=== PATIENT | male | born 1970 | race Hispanic/Latino ===

== ENCOUNTER → 2018-06-28 | Outpatient (CLI) | payer BC ==
[2018-06-28 14:00] VITALS: BP 176/101
== END | disposition home or self-care (01) ==
LOC: WHH 10:25
PROVIDERS: ATTEND Podiatrist Foot & Ankle Surgery
DX: E11.621 Type 2 diabetes mellitus with foot ulcer (principal); L97.522 Non-pressure chronic ulcer of other part of left foot with fat layer exposed; E11.610 Type 2 diabetes mellitus with diabetic neuropathic arthropathy; E11.42 Type 2 diabetes mellitus with diabetic polyneuropathy; Z89.422 Acquired absence of other left toe(s); Z89.412 Acquired absence of left great toe
CPT/HCPCS: 11042; 11045; 99205; A4450; A4649

== ENCOUNTER → 2018-07-12 | Outpatient (CLI) | payer BC ==
[2018-07-12 14:30] VITALS: BP 180/73
== END | disposition home or self-care (01) ==
LOC: WHH 09:00
PROVIDERS: ATTEND Podiatrist Foot & Ankle Surgery
DX: E11.621 Type 2 diabetes mellitus with foot ulcer (principal); L97.522 Non-pressure chronic ulcer of other part of left foot with fat layer exposed; L84 Corns and callosities; E11.610 Type 2 diabetes mellitus with diabetic neuropathic arthropathy; E11.42 Type 2 diabetes mellitus with diabetic polyneuropathy; Z89.412 Acquired absence of left great toe; Z89.422 Acquired absence of other left toe(s)
CPT/HCPCS: 11042; A6021

== ENCOUNTER → 2018-07-19 | Outpatient (CLI) | payer BC ==
[2018-07-19 13:04] VITALS: BP 175/85
== END | disposition home or self-care (01) ==
LOC: WHH 09:00
PROVIDERS: ATTEND Podiatrist Foot & Ankle Surgery
DX: E11.621 Type 2 diabetes mellitus with foot ulcer (principal); L97.522 Non-pressure chronic ulcer of other part of left foot with fat layer exposed; E11.610 Type 2 diabetes mellitus with diabetic neuropathic arthropathy; E11.42 Type 2 diabetes mellitus with diabetic polyneuropathy; Z89.422 Acquired absence of other left toe(s); Z89.412 Acquired absence of left great toe
CPT/HCPCS: 11042; A6021

== ENCOUNTER → 2018-08-09 | Outpatient (CLI) | payer BC ==
[2018-08-09 15:41] VITALS: BP 172/89
== END | disposition home or self-care (01) ==
LOC: WHH 09:00
PROVIDERS: ATTEND Podiatrist Foot & Ankle Surgery
DX: E11.621 Type 2 diabetes mellitus with foot ulcer (principal); L97.522 Non-pressure chronic ulcer of other part of left foot with fat layer exposed; E11.610 Type 2 diabetes mellitus with diabetic neuropathic arthropathy; E11.42 Type 2 diabetes mellitus with diabetic polyneuropathy; L84 Corns and callosities; Z89.422 Acquired absence of other left toe(s); Z89.412 Acquired absence of left great toe
CPT/HCPCS: 11042; A4450; A6021

== ENCOUNTER → 2018-08-23 | Outpatient (CLI) | payer BC ==
[2018-08-23 13:05] VITALS: BP 200/122
== END | disposition home or self-care (01) ==
LOC: WHH 09:00
PROVIDERS: ATTEND Podiatrist Foot & Ankle Surgery
DX: E11.621 Type 2 diabetes mellitus with foot ulcer (principal); L97.521 Non-pressure chronic ulcer of other part of left foot limited to breakdown of skin; E11.40 Type 2 diabetes mellitus with diabetic neuropathy, unspecified; E11.610 Type 2 diabetes mellitus with diabetic neuropathic arthropathy; Z89.412 Acquired absence of left great toe
CPT/HCPCS: 99214; A6021

== ENCOUNTER → 2018-09-06 | Outpatient (CLI) | payer BC ==
[2018-09-06 11:36] VITALS: BP 186/101
== END | disposition home or self-care (01) ==
LOC: WHH 09:00
PROVIDERS: ATTEND Podiatrist Foot & Ankle Surgery
DX: E11.621 Type 2 diabetes mellitus with foot ulcer (principal); L97.524 Non-pressure chronic ulcer of other part of left foot with necrosis of bone; E11.610 Type 2 diabetes mellitus with diabetic neuropathic arthropathy; E11.42 Type 2 diabetes mellitus with diabetic polyneuropathy; Z89.412 Acquired absence of left great toe; Z89.422 Acquired absence of other left toe(s)
CPT/HCPCS: 11042; A6021

== ENCOUNTER → 2018-09-20 | Outpatient (CLI) | payer BC ==
[2018-09-20 10:17] VITALS: BP 184/79
== END | disposition home or self-care (01) ==
LOC: WHH 09:20
PROVIDERS: ATTEND Podiatrist Foot & Ankle Surgery
DX: E11.621 Type 2 diabetes mellitus with foot ulcer (principal); L97.522 Non-pressure chronic ulcer of other part of left foot with fat layer exposed; E11.610 Type 2 diabetes mellitus with diabetic neuropathic arthropathy; E11.42 Type 2 diabetes mellitus with diabetic polyneuropathy; Z89.412 Acquired absence of left great toe; Z89.422 Acquired absence of other left toe(s)
CPT/HCPCS: 11042; A6021

== ENCOUNTER → 2018-09-20 | Outpatient (CLI) | payer BC | END | disposition home or self-care (01) | LOC: RAH 10:11 | PROVIDERS: ATTEND Podiatrist Foot & Ankle Surgery | DX: E11.621 Type 2 diabetes mellitus with foot ulcer (principal); L97.529 Non-pressure chronic ulcer of other part of left foot with unspecified severity | CPT/HCPCS: 73630 ==

== ENCOUNTER → 2018-10-04 | Outpatient (CLI) | payer BC ==
[2018-10-04 14:18] VITALS: BP 177/100
== END | disposition home or self-care (01) ==
LOC: WHH 09:45
PROVIDERS: ATTEND Podiatrist Foot & Ankle Surgery
DX: E11.621 Type 2 diabetes mellitus with foot ulcer (principal); L97.526 Non-pressure chronic ulcer of other part of left foot with bone involvement without evidence of necrosis; E11.610 Type 2 diabetes mellitus with diabetic neuropathic arthropathy; E11.42 Type 2 diabetes mellitus with diabetic polyneuropathy; Z89.412 Acquired absence of left great toe; Z89.422 Acquired absence of other left toe(s)
CPT/HCPCS: 11042; A6021

== ENCOUNTER 2018-10-11 05:48 | Day surgery (SDC) | payer BC ==
[2018-10-09 17:40] VITALS: BP 162/81
[2018-10-09 17:45] LABS: EOSINOPHILS % (AUTO) 1.9 % (0.0-8.0); HEMATOCRIT 35.3 % (42-54); MEAN CORPUSCULAR HEMOGLOBIN 29.3 pg (27.0-33.0); MEAN CORPUSCULAR HGB CONC 33.3 g/dL (32.0-36.0); MEAN CORPUSCULAR VOLUME 88.2 fL (79-99); MONOCYTES % (AUTO) 8.6 % (3.0-13.0); NEUTROPHILS % (AUTO) 65.5 % (40.0-77.0); PLATELET COUNT (AUTO) 273 K/uL (130-400); RED BLOOD CELL COUNT(AUTO) 4.01 MIL/uL (4.50-6.20)
[2018-10-09 19:30] LABS: CREATININE 2.6 mg/dL (0.5-1.5); POTASSIUM 4.9 mmol/L (3.5-5.1)
[2018-10-11] VITALS (14 sets, daily range): BP systolic 140–159; BP diastolic 70–92
[~2018-10-11] VITALS: Ht 171.4 cm; Wt 94.5 kg
[~2018-10-11 05:48] MED LIST: CARVEDILOL PO; FOLI1TAB85 PO; METF-444 PO; folic acid PO; furosemide PO; humulin 70/30 SQ
[2018-10-11] MEDS ORDERED: BUPIVACAINE/PF 0.5% 30ML VIAL ONE (05:49)
[2018-10-11] MEDS ORDERED: LIDOCAINE HCL 1% 20 ML VIAL ONE (05:49)
[2018-10-11] MEDS ORDERED: SODIUM CHLORIDE 0.9% 1000ML 1,000 ML IV ONE (05:53)
[2018-10-11] MEDS ORDERED: LIDOCAINE PF 2% 5ML ABBOJECT ONE (06:13)
[2018-10-11] MEDS ORDERED: PROPOFOL 10 MG/ML 20ML VIAL IV ONE (06:13)
[2018-10-11] MEDS ORDERED: ONDANSETRON HCL 4 MG/2 ML VIAL ONE (06:13)
[2018-10-11] MEDS ORDERED: MIDAZOLAM HCL 1 MG/ML 2ML VIAL ONE ×2 (06:13→07:50)
[2018-10-11] MEDS ORDERED: DEXAMETHASONE SOD PHOSPHATE 10MG/ML 1ML VIAL ONE (06:13)
[2018-10-11] MEDS ORDERED: FENTANYL CITRATE PF 50 MCG/1 ML 2ML VIAL ONE (06:14)
[2018-10-11] MEDS ORDERED: FOLI1TAB15 PO (06:49)
[2018-10-11] MEDS ORDERED: FURO40TA5 PO (06:52)
[2018-10-11] MEDS ORDERED: PRAV10TA39 PO (06:53)
== END 2018-10-11 10:00 ==
LOC: DAH 05:48
PROVIDERS: ATTEND Podiatrist Foot & Ankle Surgery
DX: L97.428 Non-pressure chronic ulcer of left heel and midfoot with other specified severity (principal); E11.22 Type 2 diabetes mellitus with diabetic chronic kidney disease; I50.9 Heart failure, unspecified; E61.2 Magnesium deficiency; I25.5 Ischemic cardiomyopathy; I25.10 Atherosclerotic heart disease of native coronary artery without angina pectoris; Z79.899 Other long term (current) drug therapy; Z68.32 Body mass index [BMI] 32.0-32.9, adult; E66.9 Obesity, unspecified; I13.2 Hypertensive heart and chronic kidney disease with heart failure and with stage 5 chronic kidney disease, or end stage renal disease; N18.6 End stage renal disease
CPT/HCPCS: 11044; 36415; 80048; 82948 ×2; 85025; 93005; A4649; A6446; J1100; J2001; J2250 ×2; J2405; J2704; J3010; J3490; J7030

== ENCOUNTER → 2018-10-13 | Outpatient (CLI) | payer BC ==
[~2018-10-13] MED LIST changes: +FOLI1TAB15 PO; +FURO40TA5 PO; +PRAV10TA39 PO; -folic acid PO; -furosemide PO
[2018-10-13 10:31] VITALS: BP 169/92
--- NOTE | 2018-10-13 10:33 | NUR ---
Patient presents to clinic status post surgical debridement. Incision to left foot mid plantar area is well approximated with sutures intact; no bleeding or drainage noted. Wound care performed as ordered. Patient tolerated wound care without complaint. Patient offloading left foot with boot and knee scooter. Addendum: 10/13/18 at 1037 by ARIAN ALLRED RN/SABRINA Amended: Links added.
== END | disposition home or self-care (01) ==
LOC: WHH 10:00
PROVIDERS: ATTEND Podiatrist Foot & Ankle Surgery
DX: T81.89XS Other complications of procedures, not elsewhere classified, sequela (principal); E11.621 Type 2 diabetes mellitus with foot ulcer; L97.521 Non-pressure chronic ulcer of other part of left foot limited to breakdown of skin; E11.610 Type 2 diabetes mellitus with diabetic neuropathic arthropathy; E11.42 Type 2 diabetes mellitus with diabetic polyneuropathy; Z89.412 Acquired absence of left great toe; Z89.422 Acquired absence of other left toe(s); Y83.8 Other surgical procedures as the cause of abnormal reaction of the patient, or of later complication, without mention of misadventure at the time of the procedure
CPT/HCPCS: 99211

== ENCOUNTER → 2018-10-18 | Outpatient (CLI) | payer BC ==
[2018-10-18 15:46] VITALS: BP 185/103
== END | disposition home or self-care (01) ==
LOC: WHH 10:00
PROVIDERS: ATTEND Podiatrist Foot & Ankle Surgery
DX: T81.89XD Other complications of procedures, not elsewhere classified, subsequent encounter (principal); E11.621 Type 2 diabetes mellitus with foot ulcer; L97.521 Non-pressure chronic ulcer of other part of left foot limited to breakdown of skin; E11.22 Type 2 diabetes mellitus with diabetic chronic kidney disease; I13.2 Hypertensive heart and chronic kidney disease with heart failure and with stage 5 chronic kidney disease, or end stage renal disease; N18.6 End stage renal disease; I50.9 Heart failure, unspecified; E11.42 Type 2 diabetes mellitus with diabetic polyneuropathy; E11.610 Type 2 diabetes mellitus with diabetic neuropathic arthropathy; I25.10 Atherosclerotic heart disease of native coronary artery without angina pectoris; E66.9 Obesity, unspecified; Z79.899 Other long term (current) drug therapy; Z89.422 Acquired absence of other left toe(s); Z89.412 Acquired absence of left great toe; Y83.8 Other surgical procedures as the cause of abnormal reaction of the patient, or of later complication, without mention of misadventure at the time of the procedure
CPT/HCPCS: 99214

== ENCOUNTER → 2018-10-25 | Outpatient (CLI) | payer BC ==
[2018-10-25 13:48] VITALS: BP 162/95
== END | disposition home or self-care (01) ==
LOC: WHH 09:30
PROVIDERS: ATTEND Podiatrist Foot & Ankle Surgery
DX: T81.89XS Other complications of procedures, not elsewhere classified, sequela (principal); E11.621 Type 2 diabetes mellitus with foot ulcer; L97.522 Non-pressure chronic ulcer of other part of left foot with fat layer exposed; E11.22 Type 2 diabetes mellitus with diabetic chronic kidney disease; I13.2 Hypertensive heart and chronic kidney disease with heart failure and with stage 5 chronic kidney disease, or end stage renal disease; N18.6 End stage renal disease; I50.9 Heart failure, unspecified; E11.610 Type 2 diabetes mellitus with diabetic neuropathic arthropathy; E11.42 Type 2 diabetes mellitus with diabetic polyneuropathy; I25.10 Atherosclerotic heart disease of native coronary artery without angina pectoris; E66.9 Obesity, unspecified; Z89.412 Acquired absence of left great toe; Z89.422 Acquired absence of other left toe(s); Z79.899 Other long term (current) drug therapy; Y83.8 Other surgical procedures as the cause of abnormal reaction of the patient, or of later complication, without mention of misadventure at the time of the procedure
CPT/HCPCS: 11042; A6021

== ENCOUNTER → 2018-11-01 | Outpatient (CLI) | payer BC ==
[2018-11-01 13:42] VITALS: BP 179/88
== END | disposition home or self-care (01) ==
LOC: WHH 10:00
PROVIDERS: ATTEND Podiatrist Foot & Ankle Surgery
DX: E11.621 Type 2 diabetes mellitus with foot ulcer (principal); L97.522 Non-pressure chronic ulcer of other part of left foot with fat layer exposed; E11.610 Type 2 diabetes mellitus with diabetic neuropathic arthropathy; E11.22 Type 2 diabetes mellitus with diabetic chronic kidney disease; I13.2 Hypertensive heart and chronic kidney disease with heart failure and with stage 5 chronic kidney disease, or end stage renal disease; N18.6 End stage renal disease; I50.9 Heart failure, unspecified; E11.42 Type 2 diabetes mellitus with diabetic polyneuropathy; I25.10 Atherosclerotic heart disease of native coronary artery without angina pectoris; E66.9 Obesity, unspecified; Z89.412 Acquired absence of left great toe; Z89.422 Acquired absence of other left toe(s); Z79.899 Other long term (current) drug therapy
CPT/HCPCS: 11042; A6022

== ENCOUNTER → 2018-11-15 | Outpatient (CLI) | payer BC ==
[2018-11-15 13:57] VITALS: BP 160/87
== END | disposition home or self-care (01) ==
LOC: WHH 10:30
PROVIDERS: ATTEND Podiatrist Foot & Ankle Surgery
DX: E11.621 Type 2 diabetes mellitus with foot ulcer (principal); L97.521 Non-pressure chronic ulcer of other part of left foot limited to breakdown of skin; E11.610 Type 2 diabetes mellitus with diabetic neuropathic arthropathy; E11.22 Type 2 diabetes mellitus with diabetic chronic kidney disease; N18.6 End stage renal disease; I13.2 Hypertensive heart and chronic kidney disease with heart failure and with stage 5 chronic kidney disease, or end stage renal disease; I50.9 Heart failure, unspecified; E11.42 Type 2 diabetes mellitus with diabetic polyneuropathy; I25.10 Atherosclerotic heart disease of native coronary artery without angina pectoris; I25.5 Ischemic cardiomyopathy; E66.9 Obesity, unspecified; E61.2 Magnesium deficiency; Z89.412 Acquired absence of left great toe; Z89.422 Acquired absence of other left toe(s); Z99.2 Dependence on renal dialysis; Z79.899 Other long term (current) drug therapy
CPT/HCPCS: 15275; A6196; A6207; Q4133

== ENCOUNTER → 2018-11-22 | Outpatient (CLI) | payer BC ==
[2018-11-22 14:58] VITALS: BP 179/103
== END | disposition home or self-care (01) ==
LOC: WHH 10:15
PROVIDERS: ATTEND Podiatrist Foot & Ankle Surgery
DX: E11.621 Type 2 diabetes mellitus with foot ulcer (principal); L97.521 Non-pressure chronic ulcer of other part of left foot limited to breakdown of skin; E11.610 Type 2 diabetes mellitus with diabetic neuropathic arthropathy; E11.22 Type 2 diabetes mellitus with diabetic chronic kidney disease; N18.6 End stage renal disease; I13.2 Hypertensive heart and chronic kidney disease with heart failure and with stage 5 chronic kidney disease, or end stage renal disease; I50.9 Heart failure, unspecified; E11.42 Type 2 diabetes mellitus with diabetic polyneuropathy; I25.10 Atherosclerotic heart disease of native coronary artery without angina pectoris; I25.5 Ischemic cardiomyopathy; E66.9 Obesity, unspecified; Z89.412 Acquired absence of left great toe; Z89.422 Acquired absence of other left toe(s); Z99.2 Dependence on renal dialysis; Z79.899 Other long term (current) drug therapy
CPT/HCPCS: 17250; A4649

== ENCOUNTER → 2018-12-13 | Outpatient (CLI) | payer BC ==
[2018-12-13 13:51] VITALS: BP 175/91
== END | disposition home or self-care (01) ==
LOC: WHH 09:30
PROVIDERS: ATTEND Podiatrist Foot & Ankle Surgery
DX: E11.621 Type 2 diabetes mellitus with foot ulcer (principal); L97.521 Non-pressure chronic ulcer of other part of left foot limited to breakdown of skin; E11.610 Type 2 diabetes mellitus with diabetic neuropathic arthropathy; E11.22 Type 2 diabetes mellitus with diabetic chronic kidney disease; N18.6 End stage renal disease; I13.2 Hypertensive heart and chronic kidney disease with heart failure and with stage 5 chronic kidney disease, or end stage renal disease; I50.9 Heart failure, unspecified; E11.42 Type 2 diabetes mellitus with diabetic polyneuropathy; I25.10 Atherosclerotic heart disease of native coronary artery without angina pectoris; I25.5 Ischemic cardiomyopathy; E66.9 Obesity, unspecified; Z89.412 Acquired absence of left great toe; Z89.422 Acquired absence of other left toe(s); Z99.2 Dependence on renal dialysis; Z79.899 Other long term (current) drug therapy
CPT/HCPCS: 11042

== ENCOUNTER 2018-12-20 10:00 | Outpatient (CLI) | payer BC ==
[2018-12-20 13:43] VITALS: BP 153/83
== END 2018-12-20 16:05 | disposition home or self-care (01) ==
LOC: WHH 10:00
PROVIDERS: ATTEND Podiatrist Foot & Ankle Surgery
DX: E11.621 Type 2 diabetes mellitus with foot ulcer (principal); L97.528 Non-pressure chronic ulcer of other part of left foot with other specified severity; E11.610 Type 2 diabetes mellitus with diabetic neuropathic arthropathy; E11.22 Type 2 diabetes mellitus with diabetic chronic kidney disease; N18.6 End stage renal disease; I13.2 Hypertensive heart and chronic kidney disease with heart failure and with stage 5 chronic kidney disease, or end stage renal disease; I50.9 Heart failure, unspecified; E11.42 Type 2 diabetes mellitus with diabetic polyneuropathy; I25.10 Atherosclerotic heart disease of native coronary artery without angina pectoris; I25.5 Ischemic cardiomyopathy; E66.9 Obesity, unspecified; Z89.412 Acquired absence of left great toe; Z89.422 Acquired absence of other left toe(s); Z99.2 Dependence on renal dialysis; Z79.899 Other long term (current) drug therapy
CPT/HCPCS: 99214

== ENCOUNTER → 2019-08-15 | Outpatient (CLI) | payer BC ==
[2019-08-15 14:17] VITALS: BP 161/78
== END | disposition home or self-care (01) ==
LOC: WHH 08:00
PROVIDERS: ATTEND Podiatrist Foot & Ankle Surgery
DX: E11.621 Type 2 diabetes mellitus with foot ulcer (principal); L97.522 Non-pressure chronic ulcer of other part of left foot with fat layer exposed; E11.22 Type 2 diabetes mellitus with diabetic chronic kidney disease; I13.2 Hypertensive heart and chronic kidney disease with heart failure and with stage 5 chronic kidney disease, or end stage renal disease; N18.6 End stage renal disease; I50.9 Heart failure, unspecified; E11.610 Type 2 diabetes mellitus with diabetic neuropathic arthropathy; E11.42 Type 2 diabetes mellitus with diabetic polyneuropathy; I25.5 Ischemic cardiomyopathy; I25.10 Atherosclerotic heart disease of native coronary artery without angina pectoris; E66.9 Obesity, unspecified; Z99.2 Dependence on renal dialysis; Z89.412 Acquired absence of left great toe; Z89.422 Acquired absence of other left toe(s); Z79.899 Other long term (current) drug therapy
CPT/HCPCS: 11042; A6209

== ENCOUNTER → 2019-08-22 | Outpatient (CLI) | payer BC ==
[2019-08-22 14:41] VITALS: BP 190/99
== END | disposition home or self-care (01) ==
LOC: WHH 09:00
PROVIDERS: ATTEND Podiatrist Foot & Ankle Surgery
DX: E11.621 Type 2 diabetes mellitus with foot ulcer (principal); L97.522 Non-pressure chronic ulcer of other part of left foot with fat layer exposed; E11.22 Type 2 diabetes mellitus with diabetic chronic kidney disease; I13.2 Hypertensive heart and chronic kidney disease with heart failure and with stage 5 chronic kidney disease, or end stage renal disease; N18.6 End stage renal disease; I50.9 Heart failure, unspecified; E11.610 Type 2 diabetes mellitus with diabetic neuropathic arthropathy; E11.42 Type 2 diabetes mellitus with diabetic polyneuropathy; I25.10 Atherosclerotic heart disease of native coronary artery without angina pectoris; I25.5 Ischemic cardiomyopathy; E66.9 Obesity, unspecified; Z79.899 Other long term (current) drug therapy; Z99.2 Dependence on renal dialysis; Z89.412 Acquired absence of left great toe; Z89.422 Acquired absence of other left toe(s)
CPT/HCPCS: 11042; A6209

== ENCOUNTER → 2019-08-29 | Outpatient (CLI) | payer BC ==
[2019-08-29 14:15] VITALS: BP 175/96
== END | disposition home or self-care (01) ==
LOC: WHH 09:30
PROVIDERS: ATTEND Podiatrist Foot & Ankle Surgery
DX: E11.621 Type 2 diabetes mellitus with foot ulcer (principal); L97.522 Non-pressure chronic ulcer of other part of left foot with fat layer exposed; E11.22 Type 2 diabetes mellitus with diabetic chronic kidney disease; I13.2 Hypertensive heart and chronic kidney disease with heart failure and with stage 5 chronic kidney disease, or end stage renal disease; N18.6 End stage renal disease; I50.9 Heart failure, unspecified; E11.610 Type 2 diabetes mellitus with diabetic neuropathic arthropathy; E11.42 Type 2 diabetes mellitus with diabetic polyneuropathy; I25.10 Atherosclerotic heart disease of native coronary artery without angina pectoris; I25.5 Ischemic cardiomyopathy; E66.9 Obesity, unspecified; Z99.2 Dependence on renal dialysis; Z79.899 Other long term (current) drug therapy; Z89.412 Acquired absence of left great toe; Z89.422 Acquired absence of other left toe(s)
CPT/HCPCS: 11042; A6209

== ENCOUNTER → 2019-09-05 | Outpatient (CLI) | payer BC ==
[2019-09-05 10:42] VITALS: BP 162/100
== END | disposition home or self-care (01) ==
LOC: WHH 09:00
PROVIDERS: ATTEND Podiatrist Foot & Ankle Surgery
DX: E11.621 Type 2 diabetes mellitus with foot ulcer (principal); L97.522 Non-pressure chronic ulcer of other part of left foot with fat layer exposed; E11.22 Type 2 diabetes mellitus with diabetic chronic kidney disease; I13.2 Hypertensive heart and chronic kidney disease with heart failure and with stage 5 chronic kidney disease, or end stage renal disease; N18.6 End stage renal disease; I50.9 Heart failure, unspecified; E11.610 Type 2 diabetes mellitus with diabetic neuropathic arthropathy; E11.42 Type 2 diabetes mellitus with diabetic polyneuropathy; I25.10 Atherosclerotic heart disease of native coronary artery without angina pectoris; I25.5 Ischemic cardiomyopathy; E66.9 Obesity, unspecified; Z99.2 Dependence on renal dialysis; Z79.899 Other long term (current) drug therapy; Z89.412 Acquired absence of left great toe; Z89.422 Acquired absence of other left toe(s)
CPT/HCPCS: 11042; A6021

== ENCOUNTER → 2019-09-12 | Outpatient (CLI) | payer BC ==
[2019-09-12 16:55] VITALS: BP 211/110
== END | disposition home or self-care (01) ==
LOC: WHH 10:00
PROVIDERS: ATTEND Podiatrist Foot & Ankle Surgery
DX: E11.621 Type 2 diabetes mellitus with foot ulcer (principal); L97.522 Non-pressure chronic ulcer of other part of left foot with fat layer exposed; E11.22 Type 2 diabetes mellitus with diabetic chronic kidney disease; I13.2 Hypertensive heart and chronic kidney disease with heart failure and with stage 5 chronic kidney disease, or end stage renal disease; N18.6 End stage renal disease; I50.9 Heart failure, unspecified; E11.51 Type 2 diabetes mellitus with diabetic peripheral angiopathy without gangrene; E11.610 Type 2 diabetes mellitus with diabetic neuropathic arthropathy; E11.42 Type 2 diabetes mellitus with diabetic polyneuropathy; I25.10 Atherosclerotic heart disease of native coronary artery without angina pectoris; I25.5 Ischemic cardiomyopathy; E66.9 Obesity, unspecified; Z89.412 Acquired absence of left great toe; Z89.422 Acquired absence of other left toe(s); Z99.2 Dependence on renal dialysis; Z79.899 Other long term (current) drug therapy
CPT/HCPCS: 11042; A6021

== ENCOUNTER → 2019-09-19 | Outpatient (CLI) | payer BC ==
[2019-09-19 16:09] VITALS: BP 199/126
== END | disposition home or self-care (01) ==
LOC: WHH 09:00
PROVIDERS: ATTEND Podiatrist Foot & Ankle Surgery
DX: E11.621 Type 2 diabetes mellitus with foot ulcer (principal); L97.522 Non-pressure chronic ulcer of other part of left foot with fat layer exposed; E11.22 Type 2 diabetes mellitus with diabetic chronic kidney disease; I13.0 Hypertensive heart and chronic kidney disease with heart failure and stage 1 through stage 4 chronic kidney disease, or unspecified chronic kidney disease; N18.6 End stage renal disease; I50.9 Heart failure, unspecified; E11.51 Type 2 diabetes mellitus with diabetic peripheral angiopathy without gangrene; E11.42 Type 2 diabetes mellitus with diabetic polyneuropathy; E11.610 Type 2 diabetes mellitus with diabetic neuropathic arthropathy; E66.9 Obesity, unspecified; I25.10 Atherosclerotic heart disease of native coronary artery without angina pectoris; I25.5 Ischemic cardiomyopathy; Z89.412 Acquired absence of left great toe; Z89.422 Acquired absence of other left toe(s); Z99.2 Dependence on renal dialysis; Z79.899 Other long term (current) drug therapy
CPT/HCPCS: 11042; 73630; 87070; 87077 ×4; 87186 ×4; A6021

== ENCOUNTER → 2019-10-03 | Outpatient (CLI) | payer BC ==
[2019-10-03 10:04] VITALS: BP 181/95
== END | disposition home or self-care (01) ==
LOC: WHH 09:00
PROVIDERS: ATTEND Podiatrist Foot & Ankle Surgery
DX: E11.621 Type 2 diabetes mellitus with foot ulcer (principal); L97.522 Non-pressure chronic ulcer of other part of left foot with fat layer exposed; E11.22 Type 2 diabetes mellitus with diabetic chronic kidney disease; I13.2 Hypertensive heart and chronic kidney disease with heart failure and with stage 5 chronic kidney disease, or end stage renal disease; N18.6 End stage renal disease; I50.9 Heart failure, unspecified; E11.42 Type 2 diabetes mellitus with diabetic polyneuropathy; E11.610 Type 2 diabetes mellitus with diabetic neuropathic arthropathy; E11.51 Type 2 diabetes mellitus with diabetic peripheral angiopathy without gangrene; I25.10 Atherosclerotic heart disease of native coronary artery without angina pectoris; I25.5 Ischemic cardiomyopathy; E66.9 Obesity, unspecified; Z89.412 Acquired absence of left great toe; Z89.422 Acquired absence of other left toe(s); Z99.2 Dependence on renal dialysis; Z79.899 Other long term (current) drug therapy
CPT/HCPCS: 11042; A6021

== ENCOUNTER → 2019-10-24 | Outpatient (CLI) | payer BC ==
[2019-10-24 13:42] VITALS: BP 183/92
== END | disposition home or self-care (01) ==
LOC: WHH 10:00
PROVIDERS: ATTEND Podiatrist Foot & Ankle Surgery
DX: E11.621 Type 2 diabetes mellitus with foot ulcer (principal); L97.522 Non-pressure chronic ulcer of other part of left foot with fat layer exposed; E11.22 Type 2 diabetes mellitus with diabetic chronic kidney disease; I13.2 Hypertensive heart and chronic kidney disease with heart failure and with stage 5 chronic kidney disease, or end stage renal disease; N18.6 End stage renal disease; I50.9 Heart failure, unspecified; E11.51 Type 2 diabetes mellitus with diabetic peripheral angiopathy without gangrene; E11.610 Type 2 diabetes mellitus with diabetic neuropathic arthropathy; E11.42 Type 2 diabetes mellitus with diabetic polyneuropathy; I25.10 Atherosclerotic heart disease of native coronary artery without angina pectoris; I25.2 Old myocardial infarction; E66.9 Obesity, unspecified; Z89.412 Acquired absence of left great toe; Z89.422 Acquired absence of other left toe(s); Z99.2 Dependence on renal dialysis; Z79.899 Other long term (current) drug therapy
CPT/HCPCS: 11042; A6021

== ENCOUNTER → 2019-11-14 | Outpatient (CLI) | payer BC ==
[2019-11-14 11:14] VITALS: BP 186/105
== END | disposition home or self-care (01) ==
LOC: WHH 08:45
PROVIDERS: ATTEND Podiatrist Foot & Ankle Surgery
DX: E11.621 Type 2 diabetes mellitus with foot ulcer (principal); L97.521 Non-pressure chronic ulcer of other part of left foot limited to breakdown of skin; E11.22 Type 2 diabetes mellitus with diabetic chronic kidney disease; I13.2 Hypertensive heart and chronic kidney disease with heart failure and with stage 5 chronic kidney disease, or end stage renal disease; N18.6 End stage renal disease; I50.9 Heart failure, unspecified; E11.51 Type 2 diabetes mellitus with diabetic peripheral angiopathy without gangrene; E11.42 Type 2 diabetes mellitus with diabetic polyneuropathy; E11.610 Type 2 diabetes mellitus with diabetic neuropathic arthropathy; I25.10 Atherosclerotic heart disease of native coronary artery without angina pectoris; I25.2 Old myocardial infarction; E66.9 Obesity, unspecified; Z89.412 Acquired absence of left great toe; Z89.422 Acquired absence of other left toe(s); Z99.2 Dependence on renal dialysis; Z79.899 Other long term (current) drug therapy
CPT/HCPCS: 11042; A6021; A6209

== ENCOUNTER → 2019-11-21 | Outpatient (CLI) | payer BC ==
[2019-11-21 11:05] VITALS: BP 188/91
== END | disposition home or self-care (01) ==
LOC: WHH 08:58
PROVIDERS: ATTEND Podiatrist Foot & Ankle Surgery
DX: E11.621 Type 2 diabetes mellitus with foot ulcer (principal); L97.521 Non-pressure chronic ulcer of other part of left foot limited to breakdown of skin; E11.22 Type 2 diabetes mellitus with diabetic chronic kidney disease; I13.2 Hypertensive heart and chronic kidney disease with heart failure and with stage 5 chronic kidney disease, or end stage renal disease; N18.6 End stage renal disease; I50.9 Heart failure, unspecified; E11.51 Type 2 diabetes mellitus with diabetic peripheral angiopathy without gangrene; E11.42 Type 2 diabetes mellitus with diabetic polyneuropathy; E11.610 Type 2 diabetes mellitus with diabetic neuropathic arthropathy; I25.10 Atherosclerotic heart disease of native coronary artery without angina pectoris; I25.2 Old myocardial infarction; E66.9 Obesity, unspecified; Z89.412 Acquired absence of left great toe; Z89.422 Acquired absence of other left toe(s); Z99.2 Dependence on renal dialysis; Z79.899 Other long term (current) drug therapy
CPT/HCPCS: 15275; A6196 ×2; A6207; Q4133

== ENCOUNTER → 2019-11-28 | Outpatient (CLI) | payer BC ==
[2019-11-28 12:56] VITALS: BP 183/84
== END | disposition home or self-care (01) ==
LOC: WHH 09:10
PROVIDERS: ATTEND Podiatrist Foot & Ankle Surgery
DX: T86.828 Other complications of skin graft (allograft) (autograft) (principal); L97.521 Non-pressure chronic ulcer of other part of left foot limited to breakdown of skin; E11.22 Type 2 diabetes mellitus with diabetic chronic kidney disease; I13.2 Hypertensive heart and chronic kidney disease with heart failure and with stage 5 chronic kidney disease, or end stage renal disease; N18.6 End stage renal disease; I50.9 Heart failure, unspecified; E11.51 Type 2 diabetes mellitus with diabetic peripheral angiopathy without gangrene; E11.42 Type 2 diabetes mellitus with diabetic polyneuropathy; E11.610 Type 2 diabetes mellitus with diabetic neuropathic arthropathy; I25.2 Old myocardial infarction; I25.10 Atherosclerotic heart disease of native coronary artery without angina pectoris; E66.9 Obesity, unspecified; Z89.412 Acquired absence of left great toe; Z89.422 Acquired absence of other left toe(s); Z99.2 Dependence on renal dialysis; Z79.899 Other long term (current) drug therapy; Y83.2 Surgical operation with anastomosis, bypass or graft as the cause of abnormal reaction of the patient, or of later complication, without mention of misadventure at the time of the procedure
CPT/HCPCS: 11042; 87070; 87077 ×3; 87186 ×3; A6209

== ENCOUNTER → 2019-12-05 | Outpatient (CLI) | payer BC ==
[2019-12-05 09:47] VITALS: BP 188/85
== END | disposition home or self-care (01) ==
LOC: WHH 09:15
PROVIDERS: ATTEND Podiatrist Foot & Ankle Surgery
DX: E11.621 Type 2 diabetes mellitus with foot ulcer (principal); L97.521 Non-pressure chronic ulcer of other part of left foot limited to breakdown of skin; E11.22 Type 2 diabetes mellitus with diabetic chronic kidney disease; I13.2 Hypertensive heart and chronic kidney disease with heart failure and with stage 5 chronic kidney disease, or end stage renal disease; N18.6 End stage renal disease; I50.9 Heart failure, unspecified; E11.42 Type 2 diabetes mellitus with diabetic polyneuropathy; E11.51 Type 2 diabetes mellitus with diabetic peripheral angiopathy without gangrene; E11.610 Type 2 diabetes mellitus with diabetic neuropathic arthropathy; I25.10 Atherosclerotic heart disease of native coronary artery without angina pectoris; I25.2 Old myocardial infarction; E66.9 Obesity, unspecified; Z89.412 Acquired absence of left great toe; Z89.422 Acquired absence of other left toe(s); Z99.2 Dependence on renal dialysis; Z79.899 Other long term (current) drug therapy
CPT/HCPCS: 99214; A6209

== ENCOUNTER → 2019-12-12 | Outpatient (CLI) | payer BC ==
[2019-12-12 14:53] VITALS: BP 175/102
== END | disposition home or self-care (01) ==
LOC: WHH 09:35
PROVIDERS: ATTEND Podiatrist Foot & Ankle Surgery
DX: E11.621 Type 2 diabetes mellitus with foot ulcer (principal); L97.521 Non-pressure chronic ulcer of other part of left foot limited to breakdown of skin; E11.22 Type 2 diabetes mellitus with diabetic chronic kidney disease; I13.2 Hypertensive heart and chronic kidney disease with heart failure and with stage 5 chronic kidney disease, or end stage renal disease; N18.6 End stage renal disease; I50.9 Heart failure, unspecified; E11.42 Type 2 diabetes mellitus with diabetic polyneuropathy; E11.51 Type 2 diabetes mellitus with diabetic peripheral angiopathy without gangrene; E11.610 Type 2 diabetes mellitus with diabetic neuropathic arthropathy; I25.10 Atherosclerotic heart disease of native coronary artery without angina pectoris; I25.2 Old myocardial infarction; E66.9 Obesity, unspecified; Z89.412 Acquired absence of left great toe; Z89.422 Acquired absence of other left toe(s); Z99.2 Dependence on renal dialysis; Z79.899 Other long term (current) drug therapy
CPT/HCPCS: 11042; A6209

== ENCOUNTER → 2020-02-20 | Outpatient (CLI) | payer BC ==
[~2020-02-20] MED LIST changes: +LIDOCAINE HCL 2% JELLY 5 ML TP ONE
== END | disposition home or self-care (01) ==
LOC: WHH 09:00
PROVIDERS: ATTEND Podiatrist Foot & Ankle Surgery
DX: E11.621 Type 2 diabetes mellitus with foot ulcer (principal); L97.522 Non-pressure chronic ulcer of other part of left foot with fat layer exposed; E11.22 Type 2 diabetes mellitus with diabetic chronic kidney disease; I13.2 Hypertensive heart and chronic kidney disease with heart failure and with stage 5 chronic kidney disease, or end stage renal disease; N18.6 End stage renal disease; I50.9 Heart failure, unspecified; E11.42 Type 2 diabetes mellitus with diabetic polyneuropathy; E11.51 Type 2 diabetes mellitus with diabetic peripheral angiopathy without gangrene; E11.610 Type 2 diabetes mellitus with diabetic neuropathic arthropathy; I25.10 Atherosclerotic heart disease of native coronary artery without angina pectoris; I25.2 Old myocardial infarction; E66.9 Obesity, unspecified; Z89.412 Acquired absence of left great toe; Z89.422 Acquired absence of other left toe(s); Z99.2 Dependence on renal dialysis; Z79.899 Other long term (current) drug therapy
CPT/HCPCS: 11042; A6207

== ENCOUNTER → 2020-03-05 | Outpatient (CLI) | payer BC ==
[~2020-03-05] MED LIST changes: -LIDOCAINE HCL 2% JELLY 5 ML TP ONE
== END | disposition home or self-care (01) ==
LOC: WHH 09:15
PROVIDERS: ATTEND Podiatrist Foot & Ankle Surgery
DX: E11.621 Type 2 diabetes mellitus with foot ulcer (principal); L97.522 Non-pressure chronic ulcer of other part of left foot with fat layer exposed; E11.22 Type 2 diabetes mellitus with diabetic chronic kidney disease; I13.2 Hypertensive heart and chronic kidney disease with heart failure and with stage 5 chronic kidney disease, or end stage renal disease; N18.6 End stage renal disease; I50.9 Heart failure, unspecified; E11.42 Type 2 diabetes mellitus with diabetic polyneuropathy; E11.51 Type 2 diabetes mellitus with diabetic peripheral angiopathy without gangrene; E11.610 Type 2 diabetes mellitus with diabetic neuropathic arthropathy; I25.10 Atherosclerotic heart disease of native coronary artery without angina pectoris; I25.2 Old myocardial infarction; E66.9 Obesity, unspecified; Z89.412 Acquired absence of left great toe; Z89.422 Acquired absence of other left toe(s); Z99.2 Dependence on renal dialysis; Z79.899 Other long term (current) drug therapy
CPT/HCPCS: 11042; A6207

== ENCOUNTER → 2020-03-12 | Outpatient (CLI) | payer BC | END | disposition home or self-care (01) | LOC: WHH 09:00 | PROVIDERS: ATTEND Podiatrist Foot & Ankle Surgery | DX: E11.621 Type 2 diabetes mellitus with foot ulcer (principal); L97.522 Non-pressure chronic ulcer of other part of left foot with fat layer exposed; E11.22 Type 2 diabetes mellitus with diabetic chronic kidney disease; I13.2 Hypertensive heart and chronic kidney disease with heart failure and with stage 5 chronic kidney disease, or end stage renal disease; N18.6 End stage renal disease; I50.9 Heart failure, unspecified; E11.42 Type 2 diabetes mellitus with diabetic polyneuropathy; E11.51 Type 2 diabetes mellitus with diabetic peripheral angiopathy without gangrene; E11.610 Type 2 diabetes mellitus with diabetic neuropathic arthropathy; I25.10 Atherosclerotic heart disease of native coronary artery without angina pectoris; I25.2 Old myocardial infarction; E66.9 Obesity, unspecified; Z89.412 Acquired absence of left great toe; Z89.422 Acquired absence of other left toe(s); Z99.2 Dependence on renal dialysis; Z79.899 Other long term (current) drug therapy | CPT/HCPCS: 11042; A6022 ==

== ENCOUNTER → 2020-03-26 | Outpatient (CLI) | payer BC | END | disposition home or self-care (01) | LOC: WHH 09:00 | PROVIDERS: ATTEND Podiatrist Foot & Ankle Surgery | DX: E11.621 Type 2 diabetes mellitus with foot ulcer (principal); L97.522 Non-pressure chronic ulcer of other part of left foot with fat layer exposed; E11.22 Type 2 diabetes mellitus with diabetic chronic kidney disease; I13.2 Hypertensive heart and chronic kidney disease with heart failure and with stage 5 chronic kidney disease, or end stage renal disease; N18.6 End stage renal disease; I50.9 Heart failure, unspecified; E11.42 Type 2 diabetes mellitus with diabetic polyneuropathy; E11.51 Type 2 diabetes mellitus with diabetic peripheral angiopathy without gangrene; E11.610 Type 2 diabetes mellitus with diabetic neuropathic arthropathy; I25.10 Atherosclerotic heart disease of native coronary artery without angina pectoris; I25.2 Old myocardial infarction; E66.9 Obesity, unspecified; Z89.412 Acquired absence of left great toe; Z89.422 Acquired absence of other left toe(s); Z99.2 Dependence on renal dialysis; Z79.899 Other long term (current) drug therapy | CPT/HCPCS: 11042; A6022 ==

== ENCOUNTER → 2020-04-09 | Outpatient (CLI) | payer BC ==
[~2020-04-09] MED LIST changes: +LIDOCAINE HCL 4% LTA SOL 4 ML VIAL TP ONE
== END | disposition home or self-care (01) ==
LOC: WHH 09:45
PROVIDERS: ATTEND Podiatrist Foot & Ankle Surgery
DX: E11.621 Type 2 diabetes mellitus with foot ulcer (principal); L97.522 Non-pressure chronic ulcer of other part of left foot with fat layer exposed; E11.22 Type 2 diabetes mellitus with diabetic chronic kidney disease; I13.2 Hypertensive heart and chronic kidney disease with heart failure and with stage 5 chronic kidney disease, or end stage renal disease; N18.6 End stage renal disease; I50.9 Heart failure, unspecified; E11.42 Type 2 diabetes mellitus with diabetic polyneuropathy; E11.51 Type 2 diabetes mellitus with diabetic peripheral angiopathy without gangrene; E11.610 Type 2 diabetes mellitus with diabetic neuropathic arthropathy; I25.10 Atherosclerotic heart disease of native coronary artery without angina pectoris; I25.2 Old myocardial infarction; E66.9 Obesity, unspecified; Z89.412 Acquired absence of left great toe; Z89.422 Acquired absence of other left toe(s); Z99.2 Dependence on renal dialysis; Z79.899 Other long term (current) drug therapy
CPT/HCPCS: 11042; A6022

== ENCOUNTER 2020-04-22 08:55 | Emergency (ER) | payer BC ==
[~2020-04-22 08:55] MED LIST changes: -LIDOCAINE HCL 4% LTA SOL 4 ML VIAL TP ONE
[2020-04-22 09:31] LABS: BASOPHILS % (AUTO) 0.8 % (0.0-5.0); EOSINOPHILS % (AUTO) 1.5 % (0.0-8.0); HEMATOCRIT 34.1 % (42-54); MEAN CORPUSCULAR HEMOGLOBIN 26.5 pg (27.0-33.0); MEAN CORPUSCULAR HGB CONC 32.6 g/dL (32.0-36.0); MEAN CORPUSCULAR VOLUME 81.4 fL (79-99); NEUTROPHILS % (AUTO) 78.4 % (40.0-77.0); PLATELET COUNT (AUTO) 276 K/uL (130-400); RED BLOOD CELL COUNT(AUTO) 4.19 MIL/uL (4.50-6.20); RED CELL DISTRIBUTION WIDTH 14.6 % (11.0-15.5); WHITE BLOOD COUNT (AUTO) 7.2 K/uL (4.8-10.8)
[2020-04-22 10:01] LABS: B-TYPE NATRIURETIC PEPTIDE 3010 pg/mL (0-100)
[2020-04-22] MEDS ORDERED: ISOSORBIDE MONO 30MG TAB SR PO ONE (10:11)
[2020-04-22 10:22] LABS: ALBUMIN 2.2 g/dL (3.5-5.0); BILIRUBIN,TOTAL 0.5 mg/dL (0.2-1.0); CREATININE 4.1 mg/dL (0.5-1.5); POTASSIUM 4.1 mmol/L (3.5-5.1); TOTAL PROTEIN, SERUM 7.1 g/dL (6.0-8.3)
[2020-04-22 12:07] LABS: APPEARANCE,URINE Clear (CLEAR); BILIRUBIN,URINE Negative (NEGATIVE); COLOR,URINE Yellow (YELLOW); GLUCOSE, URINE (UA) Negative (NEGATIVE); KETONES,URINE Negative (NEGATIVE); LEUKOCYTE ESTERASE ,URINE Negative (NEGATIVE); NITRATE,URINE Negative (NEGATIVE); OCCULT BLOOD,URINE Trace (NEGATIVE); PROTEIN,URINE 300 mg/dL (NEGATIVE); UROBILINOGEN,URINE 0.2 mg/dL (0.2-1.0)
[2020-04-22 12:08] LABS: BACTERIA,URINE Rare /HPF (None Seen); RBC,URINE 0-1 /HPF (0-1); SQUAMOUS EPITHELIAL CELL,UR Rare /HPF (0-2); WBC,URINE 0-1 /HPF (0-1)
[2020-04-22] MEDS ORDERED: HYDRALAZINE HCL 20 MG/ML VIAL ONE (12:48)
[2020-04-22] MEDS ORDERED: FUROSEMIDE 10 MG/ML 2ML VIAL ONE (13:08)
[2020-04-25] MEDS ORDERED: HYDR-4154 PO (08:49)
[2020-04-25] MEDS ORDERED: TORS20TA4 PO (08:50)
[2020-04-25] MEDS ORDERED: ISOS30TA11 PO (08:51)
== END 2020-04-22 13:49 | disposition home or self-care (01) ==
LOC: EDH 08:55
DX: I16.1 Hypertensive emergency (principal); N17.9 Acute kidney failure, unspecified; I12.9 Hypertensive chronic kidney disease with stage 1 through stage 4 chronic kidney disease, or unspecified chronic kidney disease; E11.22 Type 2 diabetes mellitus with diabetic chronic kidney disease; N18.9 Chronic kidney disease, unspecified; J81.1 Chronic pulmonary edema; E87.70 Fluid overload, unspecified; Z88.1 Allergy status to other antibiotic agents; Z91.041 Radiographic dye allergy status
CPT/HCPCS: 36415; 70450; 70480; 71045; 80053; 81001; 83880; 85025; 93005; 96374; 96375; 99291; J0360; J1940

== ENCOUNTER → 2020-04-23 | Outpatient (CLI) | payer BC ==
[~2020-04-23] MED LIST changes: +LIDOCAINE HCL 2% JELLY 5 ML TP ONE
== END | disposition home or self-care (01) ==
LOC: WHH 09:00
PROVIDERS: ATTEND Podiatrist Foot & Ankle Surgery
DX: E11.621 Type 2 diabetes mellitus with foot ulcer (principal); L97.522 Non-pressure chronic ulcer of other part of left foot with fat layer exposed; E11.22 Type 2 diabetes mellitus with diabetic chronic kidney disease; I13.2 Hypertensive heart and chronic kidney disease with heart failure and with stage 5 chronic kidney disease, or end stage renal disease; N18.6 End stage renal disease; I50.9 Heart failure, unspecified; E11.42 Type 2 diabetes mellitus with diabetic polyneuropathy; E11.51 Type 2 diabetes mellitus with diabetic peripheral angiopathy without gangrene; E11.610 Type 2 diabetes mellitus with diabetic neuropathic arthropathy; I25.10 Atherosclerotic heart disease of native coronary artery without angina pectoris; I25.2 Old myocardial infarction; E66.9 Obesity, unspecified; Z89.412 Acquired absence of left great toe; Z89.422 Acquired absence of other left toe(s); Z99.2 Dependence on renal dialysis; Z79.899 Other long term (current) drug therapy
CPT/HCPCS: 11042; A6022

== ENCOUNTER → 2020-05-14 | Outpatient (CLI) | payer BC ==
[~2020-05-14] MED LIST changes: +CARV12.580 PO; -CARVEDILOL PO; -FURO40TA5 PO; +ISOS30TA11 PO; -LIDOCAINE HCL 2% JELLY 5 ML TP ONE; +LISI10TA7 PO; -METF-444 PO; -PRAV10TA39 PO
== END | disposition home or self-care (01) ==
LOC: WHH 10:26
PROVIDERS: ATTEND Podiatrist Foot & Ankle Surgery
DX: E11.621 Type 2 diabetes mellitus with foot ulcer (principal); L97.522 Non-pressure chronic ulcer of other part of left foot with fat layer exposed; E11.22 Type 2 diabetes mellitus with diabetic chronic kidney disease; I13.2 Hypertensive heart and chronic kidney disease with heart failure and with stage 5 chronic kidney disease, or end stage renal disease; N18.6 End stage renal disease; I50.9 Heart failure, unspecified; E11.42 Type 2 diabetes mellitus with diabetic polyneuropathy; E11.51 Type 2 diabetes mellitus with diabetic peripheral angiopathy without gangrene; E11.610 Type 2 diabetes mellitus with diabetic neuropathic arthropathy; I25.10 Atherosclerotic heart disease of native coronary artery without angina pectoris; I25.2 Old myocardial infarction; E66.9 Obesity, unspecified; Z89.412 Acquired absence of left great toe; Z89.422 Acquired absence of other left toe(s); Z99.2 Dependence on renal dialysis; Z79.899 Other long term (current) drug therapy
CPT/HCPCS: 11042; A6207

== ENCOUNTER → 2020-05-28 | Outpatient (CLI) | payer BC | END | disposition home or self-care (01) | LOC: WHH 09:30 | PROVIDERS: ATTEND Podiatrist Foot & Ankle Surgery | DX: E11.621 Type 2 diabetes mellitus with foot ulcer (principal); L97.522 Non-pressure chronic ulcer of other part of left foot with fat layer exposed; E11.22 Type 2 diabetes mellitus with diabetic chronic kidney disease; I13.2 Hypertensive heart and chronic kidney disease with heart failure and with stage 5 chronic kidney disease, or end stage renal disease; N18.6 End stage renal disease; I50.9 Heart failure, unspecified; E11.42 Type 2 diabetes mellitus with diabetic polyneuropathy; E11.51 Type 2 diabetes mellitus with diabetic peripheral angiopathy without gangrene; E11.610 Type 2 diabetes mellitus with diabetic neuropathic arthropathy; I25.10 Atherosclerotic heart disease of native coronary artery without angina pectoris; I25.2 Old myocardial infarction; E66.9 Obesity, unspecified; Z89.412 Acquired absence of left great toe; Z89.422 Acquired absence of other left toe(s); Z99.2 Dependence on renal dialysis; Z79.899 Other long term (current) drug therapy | CPT/HCPCS: 11042; A6207 ==

== ENCOUNTER → 2020-06-02 | Outpatient (CLI) | payer BC | END | disposition home or self-care (01) | LOC: SHCH 08:54 | PROVIDERS: ATTEND Internal Medicine Cardiovascular Disease | DX: L97.509 Non-pressure chronic ulcer of other part of unspecified foot with unspecified severity (principal) | CPT/HCPCS: 93925 ==

== ENCOUNTER → 2020-06-11 | Outpatient (CLI) | payer BC ==
[~2020-06-11] MED LIST changes: +ASPI-1197 PO; +ATOR40TA69 PO; +CARV25TA77 PO; +INSU100C6 SQ; +ISOS60TA4 PO; +LIDOCAINE HCL 2% JELLY 5 ML TP ONE; +LOSA100T58 PO; +LOSA25TA41 PO
== END | disposition home or self-care (01) ==
LOC: WHH 10:00
PROVIDERS: ATTEND Podiatrist Foot & Ankle Surgery
DX: E11.621 Type 2 diabetes mellitus with foot ulcer (principal); L97.522 Non-pressure chronic ulcer of other part of left foot with fat layer exposed; E11.22 Type 2 diabetes mellitus with diabetic chronic kidney disease; I13.2 Hypertensive heart and chronic kidney disease with heart failure and with stage 5 chronic kidney disease, or end stage renal disease; N18.6 End stage renal disease; I50.9 Heart failure, unspecified; E11.42 Type 2 diabetes mellitus with diabetic polyneuropathy; E11.51 Type 2 diabetes mellitus with diabetic peripheral angiopathy without gangrene; E11.610 Type 2 diabetes mellitus with diabetic neuropathic arthropathy; I25.10 Atherosclerotic heart disease of native coronary artery without angina pectoris; I25.2 Old myocardial infarction; E66.9 Obesity, unspecified; Z89.412 Acquired absence of left great toe; Z89.422 Acquired absence of other left toe(s); Z99.2 Dependence on renal dialysis; Z79.899 Other long term (current) drug therapy
CPT/HCPCS: 11042; A6207

== ENCOUNTER → 2020-07-09 | Outpatient (CLI) | payer BC ==
[~2020-07-09] MED LIST changes: -CARV12.580 PO; +CLOP75TA32 PO; -ISOS30TA11 PO; -LIDOCAINE HCL 2% JELLY 5 ML TP ONE; -LISI10TA7 PO; -LOSA25TA41 PO; -humulin 70/30 SQ
== END | disposition home or self-care (01) ==
LOC: WHH 10:00
PROVIDERS: ATTEND Podiatrist Foot & Ankle Surgery
DX: E11.621 Type 2 diabetes mellitus with foot ulcer (principal); L97.522 Non-pressure chronic ulcer of other part of left foot with fat layer exposed; E11.22 Type 2 diabetes mellitus with diabetic chronic kidney disease; I13.2 Hypertensive heart and chronic kidney disease with heart failure and with stage 5 chronic kidney disease, or end stage renal disease; N18.6 End stage renal disease; I50.9 Heart failure, unspecified; E11.42 Type 2 diabetes mellitus with diabetic polyneuropathy; E11.51 Type 2 diabetes mellitus with diabetic peripheral angiopathy without gangrene; E11.610 Type 2 diabetes mellitus with diabetic neuropathic arthropathy; I25.10 Atherosclerotic heart disease of native coronary artery without angina pectoris; I25.2 Old myocardial infarction; E66.9 Obesity, unspecified; Z89.412 Acquired absence of left great toe; Z89.422 Acquired absence of other left toe(s); Z99.2 Dependence on renal dialysis; Z79.899 Other long term (current) drug therapy
CPT/HCPCS: 11042; 87070; 87077 ×2; 87186 ×2; A6207 ×2; L3260

== ENCOUNTER 2020-07-16 13:15 | Inpatient (IN) | payer BC ==
[~2020-07-16] VITALS: Ht 170.2 cm; Wt 85.5 kg
[~2020-07-16 13:15] MED LIST changes: -CLOP75TA32 PO
[2020-07-16] MEDS ORDERED: CLINDAMYCIN 600 MG/D5% WATER 50 ML IV ONE (14:08)
[2020-07-16 14:10] LABS: BASOPHILS % (AUTO) 0.2 % (0.0-5.0); HEMATOCRIT 29.4 % (42-54); LYMPHOCYTES % (AUTO) 2.1 % (21.0-51.0); MEAN CORPUSCULAR HEMOGLOBIN 27.5 pg (27.0-33.0); MEAN CORPUSCULAR VOLUME 83.3 fL (79-99); MONOCYTES % (AUTO) 8.4 % (3.0-13.0); NEUTROPHILS % (AUTO) 88.5 % (40.0-77.0); PLATELET COUNT (AUTO) 330 K/uL (130-400); RED BLOOD CELL COUNT(AUTO) 3.53 MIL/uL (4.50-6.20); RED CELL DISTRIBUTION WIDTH 19.5 % (11.0-15.5); WHITE BLOOD COUNT (AUTO) 24.2 K/uL (4.8-10.8)
[2020-07-16 14:19] LABS: INR 1.26 (0.85-1.15); PROTHROMBIN TIME 13.2 SEC (9.6-11.6)
[2020-07-16 14:20] LABS: PARTIAL THROMBOPLASTIN TIME 34.2 SEC (26.3-35.5)
[2020-07-16 14:27] LABS: CREATININE 2.8 mg/dL (0.5-1.5); POTASSIUM 3.6 mmol/L (3.5-5.1)
[2020-07-16 14:30] LABS: B-TYPE NATRIURETIC PEPTIDE 3950 pg/mL (0-100)
[2020-07-16 14:32] LABS: ALBUMIN 2.3 g/dL (3.5-5.0); TOTAL PROTEIN, SERUM 6.2 g/dL (6.0-8.3)
[2020-07-16 14:43] LABS: CRP QUANTITATIVE 185.2 mg/L (0.00-9.0)
[2020-07-16] MEDS ORDERED: SODIUM BICARB 8.4% 50ML SYRINGE IVP ONE (15:01)
[2020-07-16] MEDS ORDERED: NOREPINEPHRINE BITARTRATE 1 MG/1 ML ML IV ONE (15:01)
[2020-07-16] MEDS ORDERED: EPINEPHRINE 0.1 MG/ML 10 ML SYG IVP ONE (15:01)
[2020-07-16] MEDS ORDERED: CALCIUM CHLORIDE 100 MG/ML 10 ML SYG IVP ONE (15:01)
[2020-07-16] MEDS ORDERED: ZOSYN 3.375GM+NS 50ML 50 ML IV ONE ×2 (15:22→23:08)
[2020-07-16 15:33] LABS: ERYTHROCYTE SEDIMENTATION RATE 58 MM/HR (0-20)
[2020-07-16] MEDS ORDERED: ACETAMINOPHEN-CODEINE 300/30MG TAB PO PRN (17:15)
[2020-07-16] MEDS: CLINDAMYCIN 600 MG/D5% WATER 50 ML IV SCH ×2 (17:15→23:15)
[2020-07-16] MEDS: HEPARIN SODIUM 5000UNIT/ML 1ML VIAL SQ SCH (17:15)
[2020-07-16] MEDS ORDERED: ONDANSETRON HCL 4 MG/2 ML VIAL IV PRN (17:15)
[2020-07-16] MEDS ORDERED: ACETAMINOPHEN 325 MG TAB PO PRN ×2 (17:15)
[2020-07-16] MEDS ORDERED: HYDROMORPHONE 1 MG/1 ML AMP IV PRN (17:15)
[2020-07-16] MEDS ORDERED: GLUCAGON 1MG KIT 1 MG ML IM PRN (17:45)
[2020-07-16] MEDS ORDERED: DEXTROSE 50%-WATER 50 ML DISP.SYRIN IV PRN (17:45)
[2020-07-16 19:20] LABS: TROPONIN I 0.2 ng/mL (0.00-0.06)
[2020-07-16] MEDS: FAMOTIDINE 20MG TAB 20 MG TAB PO SCH (21:00)
[2020-07-16] MEDS: INSULIN HUMULIN R 100 UNIT/ML 3ML SQ SCH (21:00)
[2020-07-16] MEDS ORDERED: HEPARIN SODIUM 5000UNIT/ML 1ML VIAL ONE (21:32)
[2020-07-17] MEDS ORDERED: ZOSYN 3.375GM+NS 50ML 50 ML IV SCH (03:00)
[2020-07-17 03:08] LABS: HEMATOCRIT 27.5 % (42-54); MEAN CORPUSCULAR HEMOGLOBIN 27.3 pg (27.0-33.0); MEAN CORPUSCULAR HGB CONC 33.1 g/dL (32.0-36.0); MEAN CORPUSCULAR VOLUME 82.6 fL (79-99); NUCLEATED RED BLOOD CELLS 0.1 % (0.0-0.19); RED BLOOD CELL COUNT(AUTO) 3.33 MIL/uL (4.50-6.20); RED CELL DISTRIBUTION WIDTH 19.4 % (11.0-15.5); WHITE BLOOD COUNT (AUTO) 21.4 K/uL (4.8-10.8)
[2020-07-17 03:24] LABS: HEMOGLOBIN A1C 7.2 % (4.0-6.0)
[2020-07-17 04:02] LABS: BILIRUBIN,TOTAL 0.9 mg/dL (0.2-1.0); CREATININE 3.6 mg/dL (0.5-1.5); POTASSIUM 3.8 mmol/L (3.5-5.1)
[2020-07-17] MEDS: HEPARIN SODIUM 5000UNIT/ML 1ML VIAL SQ SCH ×2 (05:15→17:15)
[2020-07-17] MEDS: CLINDAMYCIN 600 MG/D5% WATER 50 ML IV SCH ×4 (05:15→23:15)
[2020-07-17] MEDS ORDERED: CLINDAMYCIN 600 MG/D5% WATER 50 ML IV ONE ×2 (05:35→09:33)
[2020-07-17] MEDS: INSULIN HUMULIN R 100 UNIT/ML 3ML SQ SCH ×4 (07:30→21:00)
[2020-07-17] MEDS ORDERED: ZOSYN 3.375GM+NS 50ML 50 ML IV ONE (07:36)
[2020-07-17] MEDS: ASPIRIN 81MG TAB.CHEW PO SCH (09:00)
[2020-07-17] MEDS ORDERED: ISOSORBIDE MONO 60 MG TAB.SR PO SCH (09:00)
[2020-07-17] MEDS: CARVEDILOL 25 MG TABLET PO SCH ×2 (09:00→21:00)
[2020-07-17] MEDS: CLOPIDOGREL BISULFATE 75 MG TAB PO SCH (09:00)
[2020-07-17] MEDS ORDERED: HEPARIN SODIUM 5000UNIT/ML 1ML VIAL ONE ×2 (09:32→21:11)
[2020-07-17] MEDS ORDERED: ASPIRIN 81MG TAB.CHEW ONE (09:32)
[2020-07-17] MEDS ORDERED: CLOPIDOGREL BISULFATE 75 MG TAB ONE (10:41)
[2020-07-17] MEDS ORDERED: CARVEDILOL 25 MG TABLET PO ONE ×2 (10:41→21:11)
[2020-07-17] MEDS ORDERED: CLOP75TA32 PO (12:44)
[2020-07-17] MEDS ORDERED: TETANUS/DIPHTHERIA TOXOID [ADULT] 0.5 ML VIAL IM ONE (16:11)
[2020-07-17] MEDS: ATORVASTATIN CALCIUM 40 MG TABLET PO SCH (17:00)
[2020-07-17] MEDS ORDERED: INSULIN HUMULIN R 100 UNIT/ML 3ML ONE (18:11)
[2020-07-17] MEDS ORDERED: RENAL DOSE IV SCH (19:00)
[2020-07-17] MEDS: ZOSYN 3.375GM+NS 50ML 50 ML IV SCH (20:00)
[2020-07-17] MEDS: FAMOTIDINE 20MG TAB 20 MG TAB PO SCH (21:00)
[2020-07-17] MEDS ORDERED: FAMOTIDINE 20MG TAB 20 MG TAB ONE (21:10)
[2020-07-18] VITALS (9 sets, daily range): BP systolic 132–157; BP diastolic 56–81
[2020-07-18] MEDS ORDERED: CLINDAMYCIN 600 MG/D5% WATER 50 ML IV ONE ×3 (00:12→11:34)
[2020-07-18] MEDS ORDERED: ZOSYN 3.375GM+NS 50ML 50 ML IV ONE ×2 (00:12→08:49)
[2020-07-18 04:27] LABS: BASOPHILS % (AUTO) 0.2 % (0.0-5.0); EOSINOPHILS % (AUTO) 0.4 % (0.0-8.0); HEMATOCRIT 27.1 % (42-54); LYMPHOCYTES % (AUTO) 4.1 % (21.0-51.0); MEAN CORPUSCULAR HEMOGLOBIN 27.2 pg (27.0-33.0); MEAN CORPUSCULAR HGB CONC 32.8 g/dL (32.0-36.0); MEAN CORPUSCULAR VOLUME 82.9 fL (79-99); MONOCYTES % (AUTO) 8.7 % (3.0-13.0); PLATELET COUNT (AUTO) 305 K/uL (130-400); RED BLOOD CELL COUNT(AUTO) 3.27 MIL/uL (4.50-6.20); RED CELL DISTRIBUTION WIDTH 19.3 % (11.0-15.5); WHITE BLOOD COUNT (AUTO) 19.3 K/uL (4.8-10.8)
[2020-07-18 04:35] LABS: CREATININE 4.8 mg/dL (0.5-1.5); POTASSIUM 3.9 mmol/L (3.5-5.1)
[2020-07-18 04:38] LABS: MAGNESIUM 1.9 mg/dL (1.80-2.40); PHOSPHORUS 5.4 mg/dL (2.5-4.9)
[2020-07-18] MEDS: CLINDAMYCIN 600 MG/D5% WATER 50 ML IV SCH ×4 (05:15→23:08)
[2020-07-18] MEDS: HEPARIN SODIUM 5000UNIT/ML 1ML VIAL SQ SCH ×2 (05:15→17:15)
[2020-07-18] MEDS: INSULIN HUMULIN R 100 UNIT/ML 3ML SQ SCH ×4 (07:30→20:40)
[2020-07-18] MEDS: ZOSYN 3.375GM+NS 50ML 50 ML IV SCH ×2 (08:00→21:13)
[2020-07-18] MEDS: CLOPIDOGREL BISULFATE 75 MG TAB PO SCH (09:00)
[2020-07-18] MEDS: ASPIRIN 81MG TAB.CHEW PO SCH (09:00)
[2020-07-18] MEDS: CARVEDILOL 25 MG TABLET PO SCH ×2 (09:00→21:14)
[2020-07-18] MEDS ORDERED: LIDOCAINE HCL 1% 20 ML VIAL ONE (15:36)
[2020-07-18] MEDS ORDERED: BUPIVACAINE/PF 0.5% 30ML VIAL ONE (15:36)
[2020-07-18] MEDS ORDERED: PROPOFOL 10 MG/ML 20ML VIAL IV ONE (15:46)
[2020-07-18] MEDS ORDERED: FENTANYL CITRATE PF 50 MCG/1 ML 2ML VIAL ONE (15:46)
[2020-07-18] MEDS ORDERED: MIDAZOLAM HCL 1 MG/ML 2ML VIAL ONE ×2 (15:46→16:08)
[2020-07-18] MEDS ORDERED: LIDOCAINE PF 2% 5ML ABBOJECT ONE (15:46)
[2020-07-18] MEDS ORDERED: ONDANSETRON HCL 4 MG/2 ML VIAL ONE (15:46)
[2020-07-18] MEDS: ATORVASTATIN CALCIUM 40 MG TABLET PO SCH (17:00)
[2020-07-18] MEDS: FAMOTIDINE 20MG TAB 20 MG TAB PO SCH (21:13)
[2020-07-19] VITALS (7 sets, daily range): BP systolic 80–124; BP diastolic 43–71
[2020-07-19] MEDS: CLINDAMYCIN 600 MG/D5% WATER 50 ML IV SCH ×4 (05:12→23:31)
[2020-07-19] MEDS: HEPARIN SODIUM 5000UNIT/ML 1ML VIAL SQ SCH ×2 (05:13→17:43)
[2020-07-19 06:12] LABS: BASOPHILS % (AUTO) 0.2 % (0.0-5.0); HEMATOCRIT 27.1 % (42-54); LYMPHOCYTES % (AUTO) 3.8 % (21.0-51.0); MEAN CORPUSCULAR HEMOGLOBIN 26.9 pg (27.0-33.0); MEAN CORPUSCULAR HGB CONC 32.1 g/dL (32.0-36.0); MEAN CORPUSCULAR VOLUME 83.9 fL (79-99); MONOCYTES % (AUTO) 9.5 % (3.0-13.0); PLATELET COUNT (AUTO) 313 K/uL (130-400); RED BLOOD CELL COUNT(AUTO) 3.23 MIL/uL (4.50-6.20); RED CELL DISTRIBUTION WIDTH 19.1 % (11.0-15.5); WHITE BLOOD COUNT (AUTO) 16.7 K/uL (4.8-10.8)
[2020-07-19] MEDS: INSULIN HUMULIN R 100 UNIT/ML 3ML SQ SCH ×4 (06:16→20:31)
[2020-07-19 06:37] LABS: CREATININE 4.2 mg/dL (0.5-1.5)
[2020-07-19] MEDS: SODIUM CHLORIDE 0.9% 1000ML 1,000 ML IV SCH ×2 (08:30→18:30)
[2020-07-19] MEDS: CARVEDILOL 25 MG TABLET PO SCH ×2 (09:00→20:24)
[2020-07-19] MEDS: ASPIRIN 81MG TAB.CHEW PO SCH (09:48)
[2020-07-19] MEDS: ZOSYN 3.375GM+NS 50ML 50 ML IV SCH ×2 (09:48→20:24)
[2020-07-19] MEDS: CLOPIDOGREL BISULFATE 75 MG TAB PO SCH (09:49)
[2020-07-19 10:07] LABS: HEMATOCRIT 26.1 % (42-54); MEAN CORPUSCULAR HEMOGLOBIN 27.2 pg (27.0-33.0); MEAN CORPUSCULAR HGB CONC 32.2 g/dL (32.0-36.0); MEAN CORPUSCULAR VOLUME 84.5 fL (79-99); RED BLOOD CELL COUNT(AUTO) 3.09 MIL/uL (4.50-6.20); RED CELL DISTRIBUTION WIDTH 19.3 % (11.0-15.5); WHITE BLOOD COUNT (AUTO) 19.2 K/uL (4.8-10.8)
[2020-07-19 10:17] LABS: CREATININE 4.5 mg/dL (0.5-1.5); POTASSIUM 4.4 mmol/L (3.5-5.1)
[2020-07-19 10:20] LABS: INR 1.34 (0.85-1.15)
[2020-07-19 10:21] LABS: PARTIAL THROMBOPLASTIN TIME 39.8 SEC (26.3-35.5)
[2020-07-19] MEDS ORDERED: NITROGLYCERIN 0.4 MG SL TAB SL PRN (13:45)
[2020-07-19] MEDS ORDERED: HEPARIN SODIUM 5000UNIT/ML 1ML VIAL IJ PRN ×2 (13:45)
[2020-07-19] MEDS ORDERED: ALBUMIN FOR BP SUPPORT MISC PRN (13:45)
[2020-07-19] MEDS ORDERED: LIDOCAINE HCL-MPF 1% 2ML VIAL IJ PRN (13:45)
[2020-07-19] MEDS ORDERED: ACETAMINOPHEN 325 MG TAB PO PRN (13:45)
[2020-07-19] MEDS ORDERED: SODIUM CHLORIDE 0.9% 1000ML 1,000 ML IV PRN (13:45)
[2020-07-19] MEDS ORDERED: 0.9% SODIUM CHLORIDE 1000 ML IV BAG IV PRN (13:45)
[2020-07-19] MEDS: ATORVASTATIN CALCIUM 40 MG TABLET PO SCH (17:40)
[2020-07-19] MEDS: FAMOTIDINE 20MG TAB 20 MG TAB PO SCH (20:24)
[2020-07-20] MEDS: SODIUM CHLORIDE 0.9% 1000ML 1,000 ML IV SCH ×3 (02:04→22:42)
[2020-07-20 04:00] VITALS: BP 99/46
[2020-07-20] MEDS: CLINDAMYCIN 600 MG/D5% WATER 50 ML IV SCH ×4 (06:06→22:42)
[2020-07-20 06:08] LABS: HEMATOCRIT 26.4 % (42-54); MEAN CORPUSCULAR HEMOGLOBIN 27.3 pg (27.0-33.0); MEAN CORPUSCULAR HGB CONC 32.6 g/dL (32.0-36.0); MEAN CORPUSCULAR VOLUME 83.8 fL (79-99); RED BLOOD CELL COUNT(AUTO) 3.15 MIL/uL (4.50-6.20); RED CELL DISTRIBUTION WIDTH 19.6 % (11.0-15.5); WHITE BLOOD COUNT (AUTO) 16.8 K/uL (4.8-10.8)
[2020-07-20] MEDS: INSULIN HUMULIN R 100 UNIT/ML 3ML SQ SCH ×4 (06:08→21:30)
[2020-07-20 06:54] LABS: ALBUMIN 1.8 g/dL (3.5-5.0); BILIRUBIN,TOTAL 1.4 mg/dL (0.2-1.0); CREATININE 5.6 mg/dL (0.5-1.5); POTASSIUM 5.4 mmol/L (3.5-5.1); TOTAL PROTEIN, SERUM 6.2 g/dL (6.0-8.3)
[2020-07-20 08:00] VITALS: BP 105/42
[2020-07-20] MEDS: CARVEDILOL 25 MG TABLET PO SCH ×2 (09:00→21:14)
[2020-07-20] MEDS: CLOPIDOGREL BISULFATE 75 MG TAB PO SCH (09:14)
[2020-07-20] MEDS: ZOSYN 3.375GM+NS 50ML 50 ML IV SCH ×2 (09:14→21:12)
[2020-07-20] MEDS: ASPIRIN 81MG TAB.CHEW PO SCH (09:14)
[2020-07-20] MEDS: HEPARIN SODIUM 5000UNIT/ML 1ML VIAL SQ SCH ×2 (09:16→21:00)
[2020-07-20 11:39] VITALS: BP 112/57
[2020-07-20 16:00] VITALS: BP 93/42
[2020-07-20] MEDS: ATORVASTATIN CALCIUM 40 MG TABLET PO SCH (18:19)
[2020-07-20 20:08] VITALS: BP 123/45
[2020-07-20] MEDS: FAMOTIDINE 20MG TAB 20 MG TAB PO SCH (21:14)
[2020-07-20 23:47] VITALS: BP 106/68
[2020-07-21 04:12] VITALS: BP 126/60
[2020-07-21 06:15] LABS: HEMATOCRIT 26.9 % (42-54); MEAN CORPUSCULAR HEMOGLOBIN 27.3 pg (27.0-33.0); MEAN CORPUSCULAR HGB CONC 33.5 g/dL (32.0-36.0); MEAN CORPUSCULAR VOLUME 81.5 fL (79-99); RED BLOOD CELL COUNT(AUTO) 3.3 MIL/uL (4.50-6.20); RED CELL DISTRIBUTION WIDTH 19.1 % (11.0-15.5); WHITE BLOOD COUNT (AUTO) 18.1 K/uL (4.8-10.8)
[2020-07-21] MEDS: INSULIN HUMULIN R 100 UNIT/ML 3ML SQ SCH ×4 (06:24→22:45)
[2020-07-21] MEDS: CLINDAMYCIN 600 MG/D5% WATER 50 ML IV SCH ×2 (06:24→11:35)
[2020-07-21 07:00] LABS: ALBUMIN 1.9 g/dL (3.5-5.0); CREATININE 6.6 mg/dL (0.5-1.5); POTASSIUM 4.5 mmol/L (3.5-5.1); TOTAL PROTEIN, SERUM 6.5 g/dL (6.0-8.3)
[2020-07-21 08:00] VITALS: BP 119/67
[2020-07-21] MEDS: ZOSYN 3.375GM+NS 50ML 50 ML IV SCH ×2 (08:51→22:43)
[2020-07-21] MEDS: HEPARIN SODIUM 5000UNIT/ML 1ML VIAL SQ SCH ×2 (09:00→22:44)
[2020-07-21] MEDS: ASPIRIN 81MG TAB.CHEW PO SCH (09:00)
[2020-07-21] MEDS: CLOPIDOGREL BISULFATE 75 MG TAB PO SCH (09:00)
[2020-07-21] MEDS: CARVEDILOL 25 MG TABLET PO SCH ×2 (09:30→22:43)
[2020-07-21] MEDS: SODIUM CHLORIDE 0.9% 1000ML 1,000 ML IV SCH ×2 (10:30→20:30)
[2020-07-21 11:31] VITALS: BP 129/44
[2020-07-21 16:00] VITALS: BP 118/45
[2020-07-21] MEDS: ATORVASTATIN CALCIUM 40 MG TABLET PO SCH (17:06)
[2020-07-21 19:58] VITALS: BP 116/56
[2020-07-21] MEDS: HYDROMORPHONE 1 MG/1 ML AMP IVP PRN ×3 (20:15→23:03)
[2020-07-21] MEDS ORDERED: EPOETIN ALFA-EPBX (ESRD) 10,000 UNIT/ML VIAL SQ SCH (21:00)
[2020-07-21] MEDS: FAMOTIDINE 20MG TAB 20 MG TAB PO SCH (22:43)
[2020-07-21 23:37] VITALS: BP 122/63
[2020-07-22] VITALS (14 sets, daily range): BP systolic 101–170; BP diastolic 46–77
[2020-07-22] MEDS: HYDROMORPHONE 1 MG/1 ML AMP IVP PRN ×4 (00:30→03:50)
[2020-07-22] MEDS: ONDANSETRON HCL 4 MG/2 ML VIAL IVP PRN (01:45)
[2020-07-22] MEDS: SODIUM CHLORIDE 0.9% 1000ML 1,000 ML IV SCH (02:09)
[2020-07-22 03:48] LABS: RED BLOOD CELL COUNT(AUTO) 3.17 MIL/uL (4.50-6.20); WHITE BLOOD COUNT (AUTO) 11.3 K/uL (4.8-10.8)
[2020-07-22 03:49] LABS: BASOPHILS % (AUTO) 0.5 % (0.0-5.0); EOSINOPHILS % (AUTO) 2.7 % (0.0-8.0); HEMATOCRIT 25.3 % (42-54); LYMPHOCYTES % (AUTO) 5.8 % (21.0-51.0); MEAN CORPUSCULAR HEMOGLOBIN 27.4 pg (27.0-33.0); MEAN CORPUSCULAR HGB CONC 34.4 g/dL (32.0-36.0); MEAN CORPUSCULAR VOLUME 79.8 fL (79-99); MONOCYTES % (AUTO) 10.2 % (3.0-13.0); NEUTROPHILS % (AUTO) 79.7 % (40.0-77.0); PLATELET COUNT (AUTO) 324 K/uL (130-400); RED CELL DISTRIBUTION WIDTH 18.6 % (11.0-15.5)
[2020-07-22 04:07] LABS: ALBUMIN 1.8 g/dL (3.5-5.0); BILIRUBIN,TOTAL 0.9 mg/dL (0.2-1.0); PHOSPHORUS 4.7 mg/dL (2.5-4.9); POTASSIUM 4.1 mmol/L (3.5-5.1)
[2020-07-22] MEDS: INSULIN HUMULIN R 100 UNIT/ML 3ML SQ SCH ×4 (05:28→20:34)
[2020-07-22 06:12] LABS: HEPATITIS Bs ANTIGEN SCREEN P Negative (Negative)
[2020-07-22] MEDS: ZOSYN 3.375GM+NS 50ML 50 ML IV SCH ×2 (08:30→20:28)
[2020-07-22] MEDS: CARVEDILOL 25 MG TABLET PO SCH ×2 (08:31→20:28)
[2020-07-22] MEDS: ASPIRIN 81MG TAB.CHEW PO SCH (08:54)
[2020-07-22] MEDS: CLOPIDOGREL BISULFATE 75 MG TAB PO SCH (08:54)
[2020-07-22] MEDS: HEPARIN SODIUM 5000UNIT/ML 1ML VIAL SQ SCH ×2 (08:55→20:53)
[2020-07-22] MEDS ORDERED: DiphenhydrAMINE HCL 50 MG/ML VIAL IV SCH (10:15)
[2020-07-22] MEDS ORDERED: METHYLPREDNISOLONE SOD SUCC 125MG/2ML VIAL IVP SCH ×2 (10:15)
[2020-07-22] MEDS: TRAMADOL HCL 50 MG TABLET PO SCH ×4 (11:07→20:52)
[2020-07-22] MEDS: ATORVASTATIN CALCIUM 40 MG TABLET PO SCH (17:00)
[2020-07-22] MEDS ORDERED: NITROGLYCERIN 2 MG/VIAL VIAL IV ONE (17:54)
[2020-07-22] MEDS ORDERED: HEPARIN SODIUM 1000UNIT/ML 10ML VIAL ONE (17:54)
[2020-07-22] MEDS ORDERED: MIDAZOLAM HCL 1 MG/ML 2ML VIAL ONE (17:55)
[2020-07-22] MEDS ORDERED: IODIXANOL 320 MG/ML 100 ML VIAL ONE (17:55)
[2020-07-22] MEDS ORDERED: SODIUM BICARB 50MEQ 50ML VIAL 50 ML ONE (17:55)
[2020-07-22] MEDS ORDERED: LIDOCAINE HCL 2% 20ML ONE (17:56)
[2020-07-22] MEDS ORDERED: FENTANYL CITRATE PF 50 MCG/1 ML 2ML VIAL ONE (17:56)
[2020-07-22] MEDS ORDERED: DiphenhydrAMINE HCL 50 MG/ML VIAL ONE (18:17)
[2020-07-22] MEDS ORDERED: METHYLPREDNISOLONE SOD SUCC 125MG/2ML VIAL ONE (18:17)
[2020-07-22] MEDS ORDERED: LABETALOL HCL 5 MG/ML 20ML VIAL IV ONE (18:59)
[2020-07-22] MEDS ORDERED: MORPHINE SULFATE 4 MG/1ML SYG ONE (19:18)
[2020-07-22] MEDS ORDERED: ENALAPRILAT DIHYDRATE 1.25 MG/ML 2ML VIAL IVP ONE ×3 (19:32→19:41)
[2020-07-22] MEDS: FAMOTIDINE 20MG TAB 20 MG TAB PO SCH (20:27)
[2020-07-23] MEDS: INSULIN HUMULIN R 100 UNIT/ML 3ML SQ SCH ×4 (05:35→21:41)
[2020-07-23 05:53] VITALS: BP 148/88
[2020-07-23 06:10] LABS: ALBUMIN 1.9 g/dL (3.5-5.0); HEMATOCRIT 28.6 % (42-54); MEAN CORPUSCULAR HEMOGLOBIN 27.2 pg (27.0-33.0); MEAN CORPUSCULAR HGB CONC 33.9 g/dL (32.0-36.0); MEAN CORPUSCULAR VOLUME 80.1 fL (79-99); RED BLOOD CELL COUNT(AUTO) 3.57 MIL/uL (4.50-6.20); RED CELL DISTRIBUTION WIDTH 19.2 % (11.0-15.5); TOTAL PROTEIN, SERUM 6.7 g/dL (6.0-8.3); WHITE BLOOD COUNT (AUTO) 11.9 K/uL (4.8-10.8)
[2020-07-23 08:30] VITALS: BP 157/66
[2020-07-23] MEDS: ZOSYN 3.375GM+NS 50ML 50 ML IV SCH ×2 (09:40→19:39)
[2020-07-23] MEDS: ASPIRIN 81MG TAB.CHEW PO SCH (09:41)
[2020-07-23] MEDS: TRAMADOL HCL 50 MG TABLET PO SCH ×4 (09:42→21:40)
[2020-07-23] MEDS: HEPARIN SODIUM 5000UNIT/ML 1ML VIAL SQ SCH ×2 (09:46→19:40)
[2020-07-23] MEDS: CLOPIDOGREL BISULFATE 75 MG TAB PO SCH (09:47)
[2020-07-23] MEDS: CARVEDILOL 25 MG TABLET PO SCH ×2 (09:47→19:39)
[2020-07-23 12:00] VITALS: BP 152/56
[2020-07-23] MEDS ORDERED: EPOETIN ALFA 10,000 UNIT/ML VIAL SQ SCH (14:30)
[2020-07-23 16:00] VITALS: BP 144/70
[2020-07-23] MEDS: ATORVASTATIN CALCIUM 40 MG TABLET PO SCH (17:43)
[2020-07-23 19:33] VITALS: BP 145/78
[2020-07-23] MEDS: FAMOTIDINE 20MG TAB 20 MG TAB PO SCH (19:39)
[2020-07-24] VITALS (7 sets, daily range): BP systolic 119–147; BP diastolic 52–88
[2020-07-24 03:59] LABS: HEMATOCRIT 28.6 % (42-54); MEAN CORPUSCULAR HEMOGLOBIN 27.9 pg (27.0-33.0); MEAN CORPUSCULAR HGB CONC 35.3 g/dL (32.0-36.0); NUCLEATED RED BLOOD CELLS 0.1 % (0.0-0.19); PLATELET COUNT (AUTO) 391 K/uL (130-400); RED BLOOD CELL COUNT(AUTO) 3.62 MIL/uL (4.50-6.20); RED CELL DISTRIBUTION WIDTH 18.9 % (11.0-15.5); WHITE BLOOD COUNT (AUTO) 24.9 K/uL (4.8-10.8)
[2020-07-24 04:17] LABS: BILIRUBIN,TOTAL 0.8 mg/dL (0.2-1.0); CREATININE 3.9 mg/dL (0.5-1.5); POTASSIUM 3.9 mmol/L (3.5-5.1); TOTAL PROTEIN, SERUM 6.7 g/dL (6.0-8.3)
[2020-07-24 04:30] LABS: BAND NEUTROPHILS % (MANUAL) 3 % (0-2); LYMPHOCYTES % (MANUAL) 1 % (22-44); MONOCYTES % (MANUAL) 11 % (2-9); SEGMENTED NEUTROPHILS % 85 % (40-70)
[2020-07-24 04:31] LABS: MAN.DIFF COMMENT-IMPRESSION MANUAL DIFFERENTIAL
[2020-07-24] MEDS: INSULIN HUMULIN R 100 UNIT/ML 3ML SQ SCH ×4 (05:45→20:16)
[2020-07-24] MEDS: ZOSYN 3.375GM+NS 50ML 50 ML IV SCH ×2 (09:28→19:33)
[2020-07-24] MEDS: TRAMADOL HCL 50 MG TABLET PO SCH ×4 (09:34→19:36)
[2020-07-24] MEDS: CARVEDILOL 25 MG TABLET PO SCH ×2 (09:34→19:33)
[2020-07-24] MEDS: ASPIRIN 81MG TAB.CHEW PO SCH (09:34)
[2020-07-24] MEDS: CLOPIDOGREL BISULFATE 75 MG TAB PO SCH (09:35)
[2020-07-24] MEDS: HEPARIN SODIUM 5000UNIT/ML 1ML VIAL SQ SCH ×2 (09:36→19:34)
[2020-07-24] MEDS: ATORVASTATIN CALCIUM 40 MG TABLET PO SCH (17:20)
[2020-07-24] MEDS: FAMOTIDINE 20MG TAB 20 MG TAB PO SCH (19:34)
[2020-07-24] MEDS: HYDROMORPHONE HCL 0.5 MG/0.5 ML ML IVP PRN (19:35)
[2020-07-25] MEDS: HYDROMORPHONE HCL 0.5 MG/0.5 ML ML IVP PRN (00:29)
[2020-07-25 03:38] LABS: BASOPHILS % (AUTO) 0.1 % (0.0-5.0); EOSINOPHILS % (AUTO) 0.9 % (0.0-8.0); HEMATOCRIT 29.1 % (42-54); LYMPHOCYTES % (AUTO) 4.5 % (21.0-51.0); MEAN CORPUSCULAR HEMOGLOBIN 28.2 pg (27.0-33.0); MEAN CORPUSCULAR HGB CONC 34.4 g/dL (32.0-36.0); MONOCYTES % (AUTO) 8.2 % (3.0-13.0); NEUTROPHILS % (AUTO) 85.8 % (40.0-77.0); NUCLEATED RED BLOOD CELLS 0.2 % (0.0-0.19); PLATELET COUNT (AUTO) 353 K/uL (130-400); RED BLOOD CELL COUNT(AUTO) 3.55 MIL/uL (4.50-6.20); RED CELL DISTRIBUTION WIDTH 19.5 % (11.0-15.5); WHITE BLOOD COUNT (AUTO) 16.2 K/uL (4.8-10.8)
[2020-07-25 03:51] LABS: ALBUMIN 1.8 g/dL (3.5-5.0); BILIRUBIN,TOTAL 0.7 mg/dL (0.2-1.0); CREATININE 5.3 mg/dL (0.5-1.5); POTASSIUM 4.5 mmol/L (3.5-5.1); TOTAL PROTEIN, SERUM 6.3 g/dL (6.0-8.3)
[2020-07-25 04:17] VITALS: BP 132/59
[2020-07-25] MEDS: INSULIN HUMULIN R 100 UNIT/ML 3ML SQ SCH ×4 (05:50→21:14)
[2020-07-25 07:20] VITALS: BP 163/67
[2020-07-25] MEDS: CARVEDILOL 25 MG TABLET PO SCH ×2 (09:00→21:06)
[2020-07-25 11:30] VITALS: BP 142/81
[2020-07-25] MEDS: CLOPIDOGREL BISULFATE 75 MG TAB PO SCH (14:07)
[2020-07-25] MEDS: ASPIRIN 81MG TAB.CHEW PO SCH (14:07)
[2020-07-25] MEDS: ZOSYN 3.375GM+NS 50ML 50 ML IV SCH ×2 (14:07→21:20)
[2020-07-25] MEDS: TRAMADOL HCL 50 MG TABLET PO SCH ×2 (14:08→21:00)
[2020-07-25] MEDS: HEPARIN SODIUM 5000UNIT/ML 1ML VIAL SQ SCH ×2 (14:14→21:10)
[2020-07-25 16:00] VITALS: BP 138/60
[2020-07-25 19:49] VITALS: BP 148/60
[2020-07-25] MEDS: FAMOTIDINE 20MG TAB 20 MG TAB PO SCH (21:06)
[2020-07-25] MEDS: EPOETIN ALFA-EPBX (ESRD) 10,000 UNIT/ML VIAL SQ SCH (21:14)
[2020-07-25 23:49] VITALS: BP 150/60
[2020-07-26 04:10] VITALS: BP 127/64
[2020-07-26 06:28] LABS: BASOPHILS % (AUTO) 0.1 % (0.0-5.0); EOSINOPHILS % (AUTO) 4.1 % (0.0-8.0); HEMATOCRIT 29.6 % (42-54); LYMPHOCYTES % (AUTO) 6.7 % (21.0-51.0); MEAN CORPUSCULAR HEMOGLOBIN 27.5 pg (27.0-33.0); MEAN CORPUSCULAR HGB CONC 33.4 g/dL (32.0-36.0); MEAN CORPUSCULAR VOLUME 82.2 fL (79-99); MONOCYTES % (AUTO) 11.1 % (3.0-13.0); NEUTROPHILS % (AUTO) 77.5 % (40.0-77.0); NUCLEATED RED BLOOD CELLS 0.3 % (0.0-0.19); PLATELET COUNT (AUTO) 295 K/uL (130-400); RED CELL DISTRIBUTION WIDTH 19.8 % (11.0-15.5)
[2020-07-26 06:57] LABS: ALBUMIN 1.7 g/dL (3.5-5.0); BILIRUBIN,TOTAL 0.7 mg/dL (0.2-1.0); CREATININE 4.2 mg/dL (0.5-1.5); TOTAL PROTEIN, SERUM 5.5 g/dL (6.0-8.3)
[2020-07-26 07:00] VITALS: BP 152/69
[2020-07-26] MEDS: INSULIN HUMULIN R 100 UNIT/ML 3ML SQ SCH ×4 (07:30→21:00)
[2020-07-26] MEDS: CARVEDILOL 25 MG TABLET PO SCH ×2 (09:00→22:24)
[2020-07-26] MEDS: TRAMADOL HCL 50 MG TABLET PO SCH ×4 (09:00→21:00)
[2020-07-26] MEDS: ZOSYN 3.375GM+NS 50ML 50 ML IV SCH ×2 (09:39→22:24)
[2020-07-26] MEDS: HEPARIN SODIUM 5000UNIT/ML 1ML VIAL SQ SCH ×2 (10:18→22:37)
[2020-07-26] MEDS: ASPIRIN 81MG TAB.CHEW PO SCH (10:48)
[2020-07-26] MEDS: CLOPIDOGREL BISULFATE 75 MG TAB PO SCH (10:49)
[2020-07-26 11:00] VITALS: BP 145/70
[2020-07-26 16:00] VITALS: BP 160/43
[2020-07-26] MEDS: ATORVASTATIN CALCIUM 40 MG TABLET PO SCH (16:38)
[2020-07-26 19:35] VITALS: BP 136/80
[2020-07-26] MEDS: FAMOTIDINE 20MG TAB 20 MG TAB PO SCH (22:24)
[2020-07-26 23:54] VITALS: BP 138/67
[2020-07-27 04:51] VITALS: BP 148/60
[2020-07-27 05:38] LABS: BASOPHILS % (AUTO) 0.1 % (0.0-5.0); EOSINOPHILS % (AUTO) 3.5 % (0.0-8.0); HEMATOCRIT 32.1 % (42-54); LYMPHOCYTES % (AUTO) 7.9 % (21.0-51.0); MEAN CORPUSCULAR HEMOGLOBIN 27.2 pg (27.0-33.0); MEAN CORPUSCULAR HGB CONC 32.1 g/dL (32.0-36.0); MEAN CORPUSCULAR VOLUME 84.9 fL (79-99); MONOCYTES % (AUTO) 10.3 % (3.0-13.0); NEUTROPHILS % (AUTO) 77.5 % (40.0-77.0); NUCLEATED RED BLOOD CELLS 0.2 % (0.0-0.19); PLATELET COUNT (AUTO) 265 K/uL (130-400); RED BLOOD CELL COUNT(AUTO) 3.78 MIL/uL (4.50-6.20); RED CELL DISTRIBUTION WIDTH 20.2 % (11.0-15.5); WHITE BLOOD COUNT (AUTO) 12.2 K/uL (4.8-10.8)
[2020-07-27 05:57] LABS: ALBUMIN 1.8 g/dL (3.5-5.0); BILIRUBIN,TOTAL 0.7 mg/dL (0.2-1.0); CREATININE 3.4 mg/dL (0.5-1.5); POTASSIUM 4.1 mmol/L (3.5-5.1); TOTAL PROTEIN, SERUM 5.8 g/dL (6.0-8.3)
[2020-07-27 07:00] VITALS: BP 147/81
[2020-07-27] MEDS: INSULIN HUMULIN R 100 UNIT/ML 3ML SQ SCH ×4 (07:01→20:48)
[2020-07-27] MEDS: ZOSYN 3.375GM+NS 50ML 50 ML IV SCH ×2 (08:26→20:36)
[2020-07-27] MEDS: TRAMADOL HCL 50 MG TABLET PO SCH (09:00)
[2020-07-27] MEDS: HEPARIN SODIUM 5000UNIT/ML 1ML VIAL SQ SCH ×2 (09:52→20:38)
[2020-07-27] MEDS: ASPIRIN 81MG TAB.CHEW PO SCH (10:21)
[2020-07-27] MEDS: CARVEDILOL 25 MG TABLET PO SCH ×2 (10:21→20:40)
[2020-07-27] MEDS: CLOPIDOGREL BISULFATE 75 MG TAB PO SCH (10:21)
[2020-07-27 11:00] VITALS: BP 130/68
[2020-07-27] MEDS ORDERED: METHYLPREDNISOLONE SOD SUCC 125MG/2ML VIAL IVP PRN (11:45)
[2020-07-27] MEDS ORDERED: FAMOTIDINE/PF 20 MG/2 ML VIAL IV PRN (11:45)
[2020-07-27] MEDS ORDERED: DiphenhydrAMINE HCL 50 MG/ML VIAL IVP PRN (11:45)
[2020-07-27 16:00] VITALS: BP 133/71
[2020-07-27] MEDS: ATORVASTATIN CALCIUM 40 MG TABLET PO SCH (16:56)
[2020-07-27 19:57] VITALS: BP 148/72
[2020-07-27] MEDS ORDERED: PREDNISONE 20 MG TABLET PO SCH (20:00)
[2020-07-27] MEDS: FAMOTIDINE 20MG TAB 20 MG TAB PO SCH (20:39)
[2020-07-27 23:51] VITALS: BP 143/73
[2020-07-28] VITALS (11 sets, daily range): BP systolic 120–157; BP diastolic 60–84
[2020-07-28 05:36] LABS: BASOPHILS % (AUTO) 0.1 % (0.0-5.0); HEMATOCRIT 33.8 % (42-54); LYMPHOCYTES % (AUTO) 2.3 % (21.0-51.0); MEAN CORPUSCULAR HEMOGLOBIN 27.8 pg (27.0-33.0); MEAN CORPUSCULAR HGB CONC 32.8 g/dL (32.0-36.0); MEAN CORPUSCULAR VOLUME 84.7 fL (79-99); MONOCYTES % (AUTO) 0.5 % (3.0-13.0); NEUTROPHILS % (AUTO) 96.3 % (40.0-77.0); NUCLEATED RED BLOOD CELLS 0.1 % (0.0-0.19); PLATELET COUNT (AUTO) 304 K/uL (130-400); RED BLOOD CELL COUNT(AUTO) 3.99 MIL/uL (4.50-6.20); RED CELL DISTRIBUTION WIDTH 20.7 % (11.0-15.5); WHITE BLOOD COUNT (AUTO) 14.6 K/uL (4.8-10.8)
[2020-07-28] MEDS ORDERED: DiphenhydrAMINE HCL 50 MG/ML VIAL IM SCH (06:00)
[2020-07-28] MEDS: SODIUM CHLORIDE 0.9% 1000ML 1,000 ML IV SCH ×2 (06:00→16:00)
[2020-07-28] MEDS ORDERED: METHYLPREDNISOLONE SOD SUCC 125MG/2ML VIAL IVP SCH (06:00)
[2020-07-28 06:05] LABS: BILIRUBIN,TOTAL 0.8 mg/dL (0.2-1.0); POTASSIUM 4.6 mmol/L (3.5-5.1); TOTAL PROTEIN, SERUM 6.2 g/dL (6.0-8.3)
[2020-07-28] MEDS: INSULIN HUMULIN R 100 UNIT/ML 3ML SQ SCH ×4 (06:35→21:24)
[2020-07-28 06:47] LABS: INR 1.21 (0.85-1.15); PROTHROMBIN TIME 12.7 SEC (9.6-11.6)
[2020-07-28 06:48] LABS: PARTIAL THROMBOPLASTIN TIME 36.2 SEC (26.3-35.5)
[2020-07-28 07:03] LABS: CREATININE 3.9 mg/dL (0.5-1.5)
[2020-07-28] MEDS: CARVEDILOL 25 MG TABLET PO SCH ×2 (07:30→21:11)
[2020-07-28] MEDS ORDERED: IODIXANOL 320 MG/ML 100 ML VIAL ONE (07:35)
[2020-07-28] MEDS ORDERED: HEPARIN SODIUM 1000UNIT/ML 10ML VIAL ONE (07:35)
[2020-07-28] MEDS ORDERED: NITROGLYCERIN 2 MG/VIAL VIAL IV ONE (07:35)
[2020-07-28] MEDS ORDERED: SODIUM BICARB 50MEQ 50ML VIAL 50 ML ONE (07:36)
[2020-07-28] MEDS ORDERED: MIDAZOLAM HCL 1 MG/ML 2ML VIAL ONE (07:36)
[2020-07-28] MEDS ORDERED: FENTANYL CITRATE PF 50 MCG/1 ML 2ML VIAL ONE (07:36)
[2020-07-28] MEDS ORDERED: LIDOCAINE HCL 2% 20ML ONE (07:36)
[2020-07-28] MEDS ORDERED: ASPIRIN 325MG EC TAB 325 MG TABLET.DR PO ONE (08:43)
[2020-07-28] MEDS ORDERED: CLOPIDOGREL BISULFATE 300 MG TAB ONE (08:43)
[2020-07-28] MEDS ORDERED: ENALAPRILAT DIHYDRATE 1.25 MG/ML 2ML VIAL IVP ONE (08:49)
[2020-07-28] MEDS: CLOPIDOGREL BISULFATE 75 MG TAB PO SCH (09:00)
[2020-07-28] MEDS: ASPIRIN 81MG TAB.CHEW PO SCH (09:00)
[2020-07-28] MEDS: HEPARIN SODIUM 5000UNIT/ML 1ML VIAL SQ SCH ×2 (09:00→21:23)
[2020-07-28] MEDS: ZOSYN 3.375GM+NS 50ML 50 ML IV SCH ×2 (09:41→21:08)
[2020-07-28] MEDS: ATORVASTATIN CALCIUM 40 MG TABLET PO SCH (17:08)
[2020-07-28] MEDS: EPOETIN ALFA-EPBX (ESRD) 10,000 UNIT/ML VIAL SQ SCH (21:09)
[2020-07-28] MEDS: FAMOTIDINE 20MG TAB 20 MG TAB PO SCH (21:09)
[2020-07-29 03:30] VITALS: BP 104/54
[2020-07-29 04:41] LABS: BASOPHILS % (AUTO) 0.1 % (0.0-5.0); HEMATOCRIT 31.7 % (42-54); LYMPHOCYTES % (AUTO) 4.4 % (21.0-51.0); MEAN CORPUSCULAR HEMOGLOBIN 27.6 pg (27.0-33.0); MEAN CORPUSCULAR HGB CONC 32.8 g/dL (32.0-36.0); MEAN CORPUSCULAR VOLUME 84.1 fL (79-99); MONOCYTES % (AUTO) 4.7 % (3.0-13.0); NEUTROPHILS % (AUTO) 90.1 % (40.0-77.0); NUCLEATED RED BLOOD CELLS 0.1 % (0.0-0.19); PLATELET COUNT (AUTO) 300 K/uL (130-400); RED BLOOD CELL COUNT(AUTO) 3.77 MIL/uL (4.50-6.20); RED CELL DISTRIBUTION WIDTH 20.9 % (11.0-15.5); WHITE BLOOD COUNT (AUTO) 17.5 K/uL (4.8-10.8)
[2020-07-29 04:58] LABS: ALBUMIN 1.8 g/dL (3.5-5.0); BILIRUBIN,TOTAL 0.6 mg/dL (0.2-1.0); CREATININE 4.7 mg/dL (0.5-1.5); POTASSIUM 4.4 mmol/L (3.5-5.1); TOTAL PROTEIN, SERUM 5.7 g/dL (6.0-8.3)
[2020-07-29 07:30] VITALS: BP 129/76
[2020-07-29] MEDS: INSULIN HUMULIN R 100 UNIT/ML 3ML SQ SCH ×4 (07:30→22:03)
[2020-07-29] MEDS: ZOSYN 3.375GM+NS 50ML 50 ML IV SCH ×2 (09:14→21:49)
[2020-07-29] MEDS: CLOPIDOGREL BISULFATE 75 MG TAB PO SCH (09:15)
[2020-07-29] MEDS: ASPIRIN 81MG TAB.CHEW PO SCH (09:15)
[2020-07-29] MEDS: CARVEDILOL 25 MG TABLET PO SCH ×2 (09:16→21:50)
[2020-07-29] MEDS: HEPARIN SODIUM 5000UNIT/ML 1ML VIAL SQ SCH ×2 (09:17→22:01)
[2020-07-29 11:00] VITALS: BP 140/70
[2020-07-29 16:00] VITALS: BP 136/67
[2020-07-29] MEDS: ATORVASTATIN CALCIUM 40 MG TABLET PO SCH (18:57)
[2020-07-29 20:28] VITALS: BP 152/74
[2020-07-29] MEDS: FAMOTIDINE 20MG TAB 20 MG TAB PO SCH (21:50)
[2020-07-29 23:57] VITALS: BP 154/63
[2020-07-30] VITALS (11 sets, daily range): BP systolic 111–149; BP diastolic 58–85
[2020-07-30 06:03] LABS: BASOPHILS % (AUTO) 0.2 % (0.0-5.0); HEMATOCRIT 30.8 % (42-54); LYMPHOCYTES % (AUTO) 9.8 % (21.0-51.0); MEAN CORPUSCULAR HEMOGLOBIN 27.9 pg (27.0-33.0); MEAN CORPUSCULAR HGB CONC 32.8 g/dL (32.0-36.0); MEAN CORPUSCULAR VOLUME 85.1 fL (79-99); MONOCYTES % (AUTO) 9.7 % (3.0-13.0); NEUTROPHILS % (AUTO) 78.8 % (40.0-77.0); PLATELET COUNT (AUTO) 284 K/uL (130-400); RED BLOOD CELL COUNT(AUTO) 3.62 MIL/uL (4.50-6.20); RED CELL DISTRIBUTION WIDTH 21.4 % (11.0-15.5); WHITE BLOOD COUNT (AUTO) 13.2 K/uL (4.8-10.8)
[2020-07-30] MEDS: INSULIN HUMULIN R 100 UNIT/ML 3ML SQ SCH ×4 (06:32→20:24)
[2020-07-30 06:37] LABS: ALBUMIN 1.8 g/dL (3.5-5.0); BILIRUBIN,TOTAL 0.6 mg/dL (0.2-1.0); POTASSIUM 4.2 mmol/L (3.5-5.1); TOTAL PROTEIN, SERUM 5.7 g/dL (6.0-8.3)
[2020-07-30] MEDS ORDERED: SUCCINYLCHOLINE 200MG/10ML SYR ONE (07:17)
[2020-07-30] MEDS ORDERED: DEXAMETHASONE SOD PHOSPHATE 10MG/ML 1ML VIAL ONE (07:17)
[2020-07-30] MEDS ORDERED: NEOSTIGMINE 5MG/5ML SYR IV ONE (07:17)
[2020-07-30] MEDS ORDERED: MIDAZOLAM HCL 1 MG/ML 2ML VIAL ONE (07:17)
[2020-07-30] MEDS ORDERED: ROCURONIUM 10MG/1ML SYR 10 MG/ML ML ONE (07:17)
[2020-07-30] MEDS ORDERED: PROPOFOL 10 MG/ML 20ML VIAL IV ONE (07:17)
[2020-07-30] MEDS ORDERED: ONDANSETRON HCL 4 MG/2 ML VIAL ONE (07:17)
[2020-07-30] MEDS ORDERED: GLYCOPYRROLATE 1 MG/5 ML SYRINGE ONE (07:17)
[2020-07-30] MEDS ORDERED: LIDOCAINE PF 2% 5ML ABBOJECT ONE (07:17)
[2020-07-30] MEDS ORDERED: FENTANYL CITRATE PF 50 MCG/1 ML 2ML VIAL ONE (07:18)
[2020-07-30] MEDS: ZOSYN 3.375GM+NS 50ML 50 ML IV SCH ×3 (07:59→20:25)
[2020-07-30] MEDS ORDERED: ONDANSETRON HCL 4 MG/2 ML VIAL IVP PRN (08:00)
[2020-07-30] MEDS ORDERED: ACETAMINOPHEN 650 MG SUPPOSITORY RC PRN (08:00)
[2020-07-30] MEDS ORDERED: ACETAMINOPHEN 325 MG TAB PO PRN (08:00)
[2020-07-30] MEDS ORDERED: ALBUMIN (HUMAN) 25% 100 ML IV ONE (08:37)
[2020-07-30] MEDS ORDERED: ROPIVACAINE 0.5% 5MG/ML 30ML IJ ONE (08:49)
[2020-07-30] MEDS: HEPARIN SODIUM 5000UNIT/ML 1ML VIAL SQ SCH ×2 (09:00→20:23)
[2020-07-30] MEDS: ASPIRIN 81MG TAB.CHEW PO SCH (09:00)
[2020-07-30] MEDS: CLOPIDOGREL BISULFATE 75 MG TAB PO SCH (09:00)
[2020-07-30] MEDS: CARVEDILOL 25 MG TABLET PO SCH ×2 (09:00→20:27)
[2020-07-30] MEDS ORDERED: MEPERIDINE-PF 25 MG/ML SYG ONE (09:39)
[2020-07-30] MEDS ORDERED: PHENYLEPHRINE HCL 10 MG/ML 1ML VIAL IV ONE (09:39)
[2020-07-30] MEDS ORDERED: EPHEDRINE SULFATE 50 MG/ML AMPULE ONE (09:43)
[2020-07-30] MEDS: LACTATED RINGERS 1000ML 1,000 ML IV SCH ×2 (09:49→12:32)
[2020-07-30 09:58] LABS: ABG BASE EXCESS 0.5 mmol/L (-2.0-3.0); ABG HCO3 24.6 mmol/L (21.0-28.0); ABG OXYGEN SATURATION 99.5 % (95.0-99.0); ABG PCO2 38 mmHg (35-48)
[2020-07-30] MEDS ORDERED: SUGAMMADEX SODIUM 200 MG/2 ML VIAL IV ONE (10:01)
[2020-07-30 10:05] LABS: BASOPHILS % (AUTO) 0.1 % (0.0-5.0); EOSINOPHILS % (AUTO) 0.9 % (0.0-8.0); HEMATOCRIT 31.6 % (42-54); LYMPHOCYTES % (AUTO) 12.6 % (21.0-51.0); MEAN CORPUSCULAR HGB CONC 32.9 g/dL (32.0-36.0); MEAN CORPUSCULAR VOLUME 85.2 fL (79-99); MONOCYTES % (AUTO) 8.5 % (3.0-13.0); NEUTROPHILS % (AUTO) 76.4 % (40.0-77.0); NUCLEATED RED BLOOD CELLS 0.2 % (0.0-0.19); PLATELET COUNT (AUTO) 227 K/uL (130-400); RED BLOOD CELL COUNT(AUTO) 3.71 MIL/uL (4.50-6.20); RED CELL DISTRIBUTION WIDTH 20.9 % (11.0-15.5)
[2020-07-30] MEDS: SODIUM CHLORIDE 0.9% 1000ML 1,000 ML IV SCH (10:38)
[2020-07-30] MEDS: ONDANSETRON HCL 4 MG/2 ML VIAL IVP PRN (12:30)
[2020-07-30] MEDS: MORPHINE SULFATE 4 MG/1ML SYG IV PRN ×2 (12:31→20:33)
[2020-07-30] MEDS: ATORVASTATIN CALCIUM 40 MG TABLET PO SCH (17:19)
[2020-07-30] MEDS: FAMOTIDINE 20MG TAB 20 MG TAB PO SCH (20:25)
[2020-07-30] MEDS: EPOETIN ALFA-EPBX (ESRD) 10,000 UNIT/ML VIAL SQ SCH (22:16)
[2020-07-31] VITALS (9 sets, daily range): BP systolic 94–126; BP diastolic 44–72
[2020-07-31 03:48] LABS: BASOPHILS % (AUTO) 0.1 % (0.0-5.0); HEMATOCRIT 31.8 % (42-54); LYMPHOCYTES % (AUTO) 5.8 % (21.0-51.0); MEAN CORPUSCULAR HEMOGLOBIN 27.7 pg (27.0-33.0); MEAN CORPUSCULAR HGB CONC 31.8 g/dL (32.0-36.0); MEAN CORPUSCULAR VOLUME 87.1 fL (79-99); MONOCYTES % (AUTO) 12.4 % (3.0-13.0); NUCLEATED RED BLOOD CELLS 0.1 % (0.0-0.19); PLATELET COUNT (AUTO) 240 K/uL (130-400); RED BLOOD CELL COUNT(AUTO) 3.65 MIL/uL (4.50-6.20); RED CELL DISTRIBUTION WIDTH 21.5 % (11.0-15.5); WHITE BLOOD COUNT (AUTO) 17.7 K/uL (4.8-10.8)
[2020-07-31 04:05] LABS: ALBUMIN 2.1 g/dL (3.5-5.0); BILIRUBIN,TOTAL 0.8 mg/dL (0.2-1.0); CREATININE 4.6 mg/dL (0.5-1.5); MAGNESIUM 1.9 mg/dL (1.80-2.40); POTASSIUM 4.7 mmol/L (3.5-5.1); TOTAL PROTEIN, SERUM 5.6 g/dL (6.0-8.3)
[2020-07-31] MEDS: INSULIN HUMULIN R 100 UNIT/ML 3ML SQ SCH ×4 (06:12→20:44)
[2020-07-31] MEDS: ZOSYN 3.375GM+NS 50ML 50 ML IV SCH (08:00)
[2020-07-31] MEDS: HEPARIN SODIUM 5000UNIT/ML 1ML VIAL SQ SCH ×2 (09:00→20:44)
[2020-07-31] MEDS: CARVEDILOL 25 MG TABLET PO SCH ×2 (09:00→20:42)
[2020-07-31] MEDS ORDERED: PHARMACY COMMUNICATION MISC SCH (13:30)
[2020-07-31] MEDS ORDERED: ALBUMIN (HUMAN) 25% 100 ML IV PRN (13:30)
[2020-07-31] MEDS ORDERED: POTASSIUM CHLORIDE 20 MEQ ERTAB PO ONE (14:08)
[2020-07-31] MEDS: ASPIRIN 81MG TAB.CHEW PO SCH (15:36)
[2020-07-31] MEDS: CLOPIDOGREL BISULFATE 75 MG TAB PO SCH (15:36)
[2020-07-31] MEDS: HYDROCODONE/ACETAMINOPHEN 5/325 MG TAB PO PRN ×2 (16:15→20:42)
[2020-07-31] MEDS: ATORVASTATIN CALCIUM 40 MG TABLET PO SCH (16:16)
[2020-07-31] MEDS: FAMOTIDINE 20MG TAB 20 MG TAB PO SCH (20:41)
[2020-08-01 03:54] VITALS: BP 123/62
[2020-08-01 04:15] LABS: BASOPHILS % (AUTO) 0.1 % (0.0-5.0); EOSINOPHILS % (AUTO) 2.2 % (0.0-8.0); HEMATOCRIT 27.4 % (42-54); LYMPHOCYTES % (AUTO) 6.4 % (21.0-51.0); MEAN CORPUSCULAR HEMOGLOBIN 28.2 pg (27.0-33.0); MEAN CORPUSCULAR HGB CONC 32.1 g/dL (32.0-36.0); MEAN CORPUSCULAR VOLUME 87.8 fL (79-99); MONOCYTES % (AUTO) 10.1 % (3.0-13.0); NEUTROPHILS % (AUTO) 80.6 % (40.0-77.0); PLATELET COUNT (AUTO) 159 K/uL (130-400); RED BLOOD CELL COUNT(AUTO) 3.12 MIL/uL (4.50-6.20); RED CELL DISTRIBUTION WIDTH 21.5 % (11.0-15.5); WHITE BLOOD COUNT (AUTO) 15.7 K/uL (4.8-10.8)
[2020-08-01 04:29] LABS: CREATININE 4.1 mg/dL (0.5-1.5); MAGNESIUM 1.8 mg/dL (1.80-2.40); POTASSIUM 4.3 mmol/L (3.5-5.1)
[2020-08-01] MEDS: INSULIN HUMULIN R 100 UNIT/ML 3ML SQ SCH ×4 (06:07→21:00)
[2020-08-01 07:40] VITALS: BP 115/70
[2020-08-01] MEDS: ASPIRIN 81MG TAB.CHEW PO SCH (08:50)
[2020-08-01] MEDS: CLOPIDOGREL BISULFATE 75 MG TAB PO SCH (08:50)
[2020-08-01] MEDS: HYDROCODONE/ACETAMINOPHEN 5/325 MG TAB PO PRN (08:51)
[2020-08-01] MEDS: HEPARIN SODIUM 5000UNIT/ML 1ML VIAL SQ SCH ×2 (08:52→21:19)
[2020-08-01] MEDS: CARVEDILOL 25 MG TABLET PO SCH ×2 (08:55→21:08)
[2020-08-01] MEDS: MORPHINE SULFATE 4 MG/1ML SYG IV PRN (10:59)
[2020-08-01 11:15] VITALS: BP 108/67
[2020-08-01 16:42] VITALS: BP 137/40
[2020-08-01] MEDS: ATORVASTATIN CALCIUM 40 MG TABLET PO SCH (16:58)
[2020-08-01 20:00] VITALS: BP 117/68
[2020-08-01] MEDS: FAMOTIDINE 20MG TAB 20 MG TAB PO SCH (21:03)
[2020-08-01] MEDS: EPOETIN ALFA-EPBX (ESRD) 10,000 UNIT/ML VIAL SQ SCH (21:04)
[2020-08-02] VITALS (7 sets, daily range): BP systolic 120–147; BP diastolic 57–80
[2020-08-02] MEDS: INSULIN HUMULIN R 100 UNIT/ML 3ML SQ SCH ×4 (06:31→20:52)
[2020-08-02 08:52] LABS: HEMATOCRIT 27.9 % (42-54); MEAN CORPUSCULAR HEMOGLOBIN 28.9 pg (27.0-33.0); MEAN CORPUSCULAR HGB CONC 32.6 g/dL (32.0-36.0); MEAN CORPUSCULAR VOLUME 88.6 fL (79-99); NUCLEATED RED BLOOD CELLS 0.1 % (0.0-0.19); PLATELET COUNT (AUTO) 189 K/uL (130-400); RED BLOOD CELL COUNT(AUTO) 3.15 MIL/uL (4.50-6.20); RED CELL DISTRIBUTION WIDTH 21.6 % (11.0-15.5); WHITE BLOOD COUNT (AUTO) 14.9 K/uL (4.8-10.8)
[2020-08-02 09:00] LABS: CREATININE 5.3 mg/dL (0.5-1.5); POTASSIUM 4.4 mmol/L (3.5-5.1)
[2020-08-02] MEDS: HEPARIN SODIUM 5000UNIT/ML 1ML VIAL SQ SCH ×2 (09:00→20:51)
[2020-08-02 09:17] LABS: BAND NEUTROPHILS % (MANUAL) 2 % (0-2); BASOPHILS % (MANUAL) 1 % (0-2); LYMPHOCYTES % (MANUAL) 4 % (22-44); MAN.DIFF COMMENT-IMPRESSION MANUAL DIFFERENTIAL; MONOCYTES % (MANUAL) 6 % (2-9); SEGMENTED NEUTROPHILS % 87 % (40-70)
[2020-08-02 09:18] LABS: PLATELET MORPHOLOGY COMMENT ADEQUATE
[2020-08-02] MEDS: CARVEDILOL 25 MG TABLET PO SCH ×2 (13:16→20:37)
[2020-08-02] MEDS: CLOPIDOGREL BISULFATE 75 MG TAB PO SCH (13:16)
[2020-08-02] MEDS: ASPIRIN 81MG TAB.CHEW PO SCH (13:17)
[2020-08-02] MEDS: ATORVASTATIN CALCIUM 40 MG TABLET PO SCH (16:23)
[2020-08-02] MEDS: FAMOTIDINE 20MG TAB 20 MG TAB PO SCH (20:37)
[2020-08-03 03:48] VITALS: BP 124/52
[2020-08-03] MEDS: INSULIN HUMULIN R 100 UNIT/ML 3ML SQ SCH ×4 (07:30→20:42)
[2020-08-03 08:00] VITALS: BP 138/72
[2020-08-03] MEDS: ASPIRIN 81MG TAB.CHEW PO SCH (09:44)
[2020-08-03] MEDS: CARVEDILOL 25 MG TABLET PO SCH ×2 (09:45→20:30)
[2020-08-03] MEDS: CLOPIDOGREL BISULFATE 75 MG TAB PO SCH (09:45)
[2020-08-03] MEDS: HEPARIN SODIUM 5000UNIT/ML 1ML VIAL SQ SCH ×2 (09:46→20:35)
[2020-08-03] MEDS: HYDROCODONE/ACETAMINOPHEN 5/325 MG TAB PO PRN (09:54)
[2020-08-03 12:08] VITALS: BP 147/76
[2020-08-03] MEDS ORDERED: ACET-2247 PO (13:10)
[2020-08-03] MEDS ORDERED: HYDR-4060 PO (13:10)
[2020-08-03 16:00] VITALS: BP 140/80
[2020-08-03] MEDS: ATORVASTATIN CALCIUM 40 MG TABLET PO SCH (18:40)
[2020-08-03 19:40] VITALS: BP 147/63
[2020-08-03] MEDS: FAMOTIDINE 20MG TAB 20 MG TAB PO SCH (20:29)
[2020-08-04 00:16] VITALS: BP 119/60
== END 2020-08-04 00:17 | DRG 853 ==
LOC: EDH 13:15 → EDHIP 17:01 → 3AH 07-18 15:12 → 2DH 07-30 10:28 → 3CH 07-31 15:56
PROVIDERS: ADMIT Hospitalist; ATTEND Hospitalist
PROC: 5A1D70Z Performance of Urinary Filtration, Intermittent, Less than 6 Hours Per Day (ICD-10-PCS; 2020-07-18)
PROC: 0Y6X0Z0 Detachment at Right 5th Toe, Complete, Open Approach (ICD-10-PCS; principal; 2020-07-19)
PROC: 5A1D70Z Performance of Urinary Filtration, Intermittent, Less than 6 Hours Per Day (ICD-10-PCS; 2020-07-21)
PROC: B41G1ZZ Fluoroscopy of Left Lower Extremity Arteries using Low Osmolar Contrast (ICD-10-PCS; 2020-07-22)
PROC: B41F1ZZ Fluoroscopy of Right Lower Extremity Arteries using Low Osmolar Contrast (ICD-10-PCS; 2020-07-22)
PROC: 5A1D70Z Performance of Urinary Filtration, Intermittent, Less than 6 Hours Per Day (ICD-10-PCS; 2020-07-24)
PROC: 5A1D70Z Performance of Urinary Filtration, Intermittent, Less than 6 Hours Per Day (ICD-10-PCS; 2020-07-25)
PROC: 5A1D70Z Performance of Urinary Filtration, Intermittent, Less than 6 Hours Per Day (ICD-10-PCS; 2020-07-26)
PROC: 5A1D70Z Performance of Urinary Filtration, Intermittent, Less than 6 Hours Per Day (ICD-10-PCS; 2020-07-29)
PROC: 0Y6H0Z1 Detachment at Right Lower Leg, High, Open Approach (ICD-10-PCS; 2020-07-30)
PROC: 30233N1 Transfusion of Nonautologous Red Blood Cells into Peripheral Vein, Percutaneous Approach (ICD-10-PCS; 2020-07-30)
PROC: 5A12012 Performance of Cardiac Output, Single, Manual (ICD-10-PCS; 2020-07-30)
PROC: 5A1D70Z Performance of Urinary Filtration, Intermittent, Less than 6 Hours Per Day (ICD-10-PCS; 2020-07-31)
PROC: 5A1D70Z Performance of Urinary Filtration, Intermittent, Less than 6 Hours Per Day (ICD-10-PCS; 2020-08-02)
DX: A41.9 Sepsis, unspecified organism (principal); N18.6 End stage renal disease; I46.9 Cardiac arrest, cause unspecified; J96.91 Respiratory failure, unspecified with hypoxia; E11.52 Type 2 diabetes mellitus with diabetic peripheral angiopathy with gangrene; I13.2 Hypertensive heart and chronic kidney disease with heart failure and with stage 5 chronic kidney disease, or end stage renal disease; L03.115 Cellulitis of right lower limb; L97.429 Non-pressure chronic ulcer of left heel and midfoot with unspecified severity; M86.9 Osteomyelitis, unspecified; E11.621 Type 2 diabetes mellitus with foot ulcer; L97.519 Non-pressure chronic ulcer of other part of right foot with unspecified severity; E11.22 Type 2 diabetes mellitus with diabetic chronic kidney disease; I27.20 Pulmonary hypertension, unspecified; I25.10 Atherosclerotic heart disease of native coronary artery without angina pectoris; E11.69 Type 2 diabetes mellitus with other specified complication; E66.9 Obesity, unspecified; E78.5 Hyperlipidemia, unspecified; I25.5 Ischemic cardiomyopathy; I34.0 Nonrheumatic mitral (valve) insufficiency; I50.9 Heart failure, unspecified; E11.610 Type 2 diabetes mellitus with diabetic neuropathic arthropathy; E11.42 Type 2 diabetes mellitus with diabetic polyneuropathy; D64.9 Anemia, unspecified; L97.529 Non-pressure chronic ulcer of other part of left foot with unspecified severity; Z20.822 Contact with and (suspected) exposure to COVID-19; Z89.412 Acquired absence of left great toe; Z89.422 Acquired absence of other left toe(s); Z88.1 Allergy status to other antibiotic agents; Z88.8 Allergy status to other drugs, medicaments and biological substances; I25.2 Old myocardial infarction; Z95.5 Presence of coronary angioplasty implant and graft; Z87.01 Personal history of pneumonia (recurrent); Z91.14 Patient's other noncompliance with medication regimen; Z99.2 Dependence on renal dialysis; Z82.3 Family history of stroke; Z83.3 Family history of diabetes mellitus; Z82.49 Family history of ischemic heart disease and other diseases of the circulatory system
CPT/HCPCS: 36247; 36415; 37228; 37232; 71045; 73630; 73718; 75716; 80048; 80053; 82435; 82550; 82803; 82947; 82948; 83036; 83605; 83735; 83874; 83880; 84100; 84132; 84145; 84295; 84484; 85018; 85025; 85027; 85347; 85610; 85651; 85730; 86140; 86704; 86706; 86850; 86900; 86901; 86923; 87040; 87070; 87076; 87077; 87186; 87205; 87340; 87426; 87520; 90714; 90935; 92950; 93005; 93926; 97039; 99156; 99157; 99214; C1760; C1769; C1893; C1894; G0378; J0171; J0330; J0885; J1100; J1170; J1200; J1644; J1815; J2001; J2175; J2250; J2270; J2370; J2405; J2543; J2704; J2710; J2795; J2930; J3010; J3490; J7030; J7070; J7120; P9016; P9047; Q9967; U0003

== ENCOUNTER → 2020-09-10 | Outpatient (CLI) | payer BC ==
[~2020-09-10] MED LIST changes: +ACET-2247 PO; +CLOP75TA32 PO; +HYDR-4060 PO; -ISOS60TA4 PO; -LOSA100T58 PO
== END | disposition home or self-care (01) ==
LOC: WHH 10:00
PROVIDERS: ATTEND Podiatrist Foot & Ankle Surgery
DX: T87.89 Other complications of amputation stump (principal); E11.621 Type 2 diabetes mellitus with foot ulcer; L97.522 Non-pressure chronic ulcer of other part of left foot with fat layer exposed; L97.512 Non-pressure chronic ulcer of other part of right foot with fat layer exposed; E11.22 Type 2 diabetes mellitus with diabetic chronic kidney disease; I13.2 Hypertensive heart and chronic kidney disease with heart failure and with stage 5 chronic kidney disease, or end stage renal disease; N18.6 End stage renal disease; I50.9 Heart failure, unspecified; E11.42 Type 2 diabetes mellitus with diabetic polyneuropathy; E11.51 Type 2 diabetes mellitus with diabetic peripheral angiopathy without gangrene; E11.610 Type 2 diabetes mellitus with diabetic neuropathic arthropathy; I25.10 Atherosclerotic heart disease of native coronary artery without angina pectoris; I25.2 Old myocardial infarction; E66.9 Obesity, unspecified; Z89.412 Acquired absence of left great toe; Z89.422 Acquired absence of other left toe(s); Z99.2 Dependence on renal dialysis; Z79.899 Other long term (current) drug therapy; Y83.5 Amputation of limb(s) as the cause of abnormal reaction of the patient, or of later complication, without mention of misadventure at the time of the procedure; Y92.238 Other place in hospital as the place of occurrence of the external cause
CPT/HCPCS: 97597

== ENCOUNTER → 2020-11-14 | Outpatient (CLI) | payer BC | END | disposition home or self-care (01) | LOC: SHCH 12:48 | PROVIDERS: ATTEND Internal Medicine Cardiovascular Disease | DX: I08.2 Rheumatic disorders of both aortic and tricuspid valves (principal); I13.11 Hypertensive heart and chronic kidney disease without heart failure, with stage 5 chronic kidney disease, or end stage renal disease; E11.22 Type 2 diabetes mellitus with diabetic chronic kidney disease; N18.6 End stage renal disease; E78.5 Hyperlipidemia, unspecified; Z86.16 Personal history of COVID-19 | CPT/HCPCS: 93306; 93356 ==

== ENCOUNTER 2021-07-31 12:36 | Emergency (ER) | payer BC ==
[~2021-07-31] VITALS: Ht 170.2 cm; Wt 72.6 kg
[2021-07-31] MEDS ORDERED: HYDROCODONE/ACETAMINOPHEN 5/325 MG TAB PO ONE (13:00)
[2021-07-31] MEDS ORDERED: DIAZEPAM 5 MG/ML 2 ML SYG IVP ONE ×2 (13:00→13:30)
[2021-07-31 13:06] LABS: BASOPHILS % (AUTO) 0.7 % (0.0-5.0); EOSINOPHILS % (AUTO) 0.6 % (0.0-8.0); HEMATOCRIT 38.2 % (42-54); MEAN CORPUSCULAR HEMOGLOBIN 30.6 pg (27.0-33.0); MEAN CORPUSCULAR HGB CONC 31.7 g/dL (32.0-36.0); MEAN CORPUSCULAR VOLUME 96.7 fL (79-99); NEUTROPHILS % (AUTO) 83.5 % (40.0-77.0); PLATELET COUNT (AUTO) 164 K/uL (130-400); RED BLOOD CELL COUNT(AUTO) 3.95 MIL/uL (4.50-6.20); RED CELL DISTRIBUTION WIDTH 14.9 % (11.0-15.5); WHITE BLOOD COUNT (AUTO) 8.7 K/uL (4.8-10.8)
[2021-07-31] MEDS ORDERED: DIAZEPAM 5 MG TABLET ONE (13:26)
[2021-07-31] MEDS ORDERED: ONDANSETRON ODT 4MG TAB SL ONE (13:30)
[2021-07-31] MEDS ORDERED: ALBUTEROL INHALER 90MCG/INH IH PRN (14:30)
[2021-07-31] MEDS ORDERED: CEFTRIAXONE 1G VIAL IM ONE (14:30)
[2021-07-31] MEDS ORDERED: AZITHROMYCIN 250 MG TABLET PO ONE (14:30)
[2021-07-31] MEDS ORDERED: TRAM1TAB PO (14:49)
[2021-07-31] MEDS ORDERED: LEVO500T90 PO (14:49)
[2021-07-31] MEDS ORDERED: FLUT1DIS IH (14:49)
[2021-07-31] MEDS ORDERED: ALBU8.5H8 IH (14:49)
[2021-07-31] MEDS ORDERED: CYCL10TA16 PO (14:49)
[2021-07-31 15:06] VITALS: BP 151/83
== END 2021-07-31 15:42 | disposition home or self-care (01) ==
LOC: EDH 12:36
DX: J84.10 Pulmonary fibrosis, unspecified (principal); M47.896 Other spondylosis, lumbar region; R05.9 Cough, unspecified; Z20.822 Contact with and (suspected) exposure to COVID-19; I12.0 Hypertensive chronic kidney disease with stage 5 chronic kidney disease or end stage renal disease; E11.22 Type 2 diabetes mellitus with diabetic chronic kidney disease; E78.00 Pure hypercholesterolemia, unspecified; N18.6 End stage renal disease; Z88.1 Allergy status to other antibiotic agents; Z88.8 Allergy status to other drugs, medicaments and biological substances; Z89.511 Acquired absence of right leg below knee; Z99.2 Dependence on renal dialysis; Z79.82 Long term (current) use of aspirin; Z79.51 Long term (current) use of inhaled steroids; Z79.4 Long term (current) use of insulin
CPT/HCPCS: 36415; 71045; 72100; 85025; 86140; 87635; 96372; 99284; C9803; J0696

== ENCOUNTER 2021-09-14 14:20 | Inpatient (IN) | payer BC ==
[~2021-09-14] VITALS: Ht 170.2 cm; Wt 74.4 kg
[~2021-09-14 14:20] MED LIST changes: +ALBU8.5H8 IH; +CYCL10TA16 PO; +FLUT1DIS IH; +LEVO500T90 PO; +TRAM1TAB2 PO
[2021-09-14 15:05] LABS: BASOPHILS % (AUTO) 0.9 % (0.0-5.0); EOSINOPHILS % (AUTO) 1.7 % (0.0-8.0); HEMATOCRIT 38.8 % (42-54); LYMPHOCYTES % (AUTO) 6.9 % (21.0-51.0); MEAN CORPUSCULAR HEMOGLOBIN 29.8 pg (27.0-33.0); MEAN CORPUSCULAR HGB CONC 30.9 g/dL (32.0-36.0); MEAN CORPUSCULAR VOLUME 96.3 fL (79-99); MONOCYTES % (AUTO) 12.2 % (3.0-13.0); NEUTROPHILS % (AUTO) 77.7 % (40.0-77.0); PLATELET COUNT (AUTO) 139 K/uL (130-400); RED BLOOD CELL COUNT(AUTO) 4.03 MIL/uL (4.50-6.20); RED CELL DISTRIBUTION WIDTH 15.8 % (11.0-15.5)
[2021-09-14 15:15] LABS: ABG BASE EXCESS -4.6 mmol/L (-2.0-3.0); ABG HCO3 22.8 mmol/L (21.0-28.0); ABG OXYGEN SATURATION 89.7 % (95.0-99.0); ABG PCO2 51 mmHg (35-48)
[2021-09-14 15:21] LABS: ALBUMIN 2.6 g/dL (3.5-5.0); BILIRUBIN,TOTAL 0.8 mg/dL (0.2-1.0); CREATININE 5.9 mg/dL (0.5-1.5); POTASSIUM 5.2 mmol/L (3.5-5.1); TOTAL PROTEIN, SERUM 7.6 g/dL (6.0-8.3)
[2021-09-14] MEDS ORDERED: IPRATROPIUM/ALBUTEROL SULFATE 3 ML SOLUTION IH PRN (17:00)
[2021-09-14] MEDS ORDERED: NA ZIRCON CYCLOSIL(LOKELMA 10GM) PO ONE (17:00)
[2021-09-14] MEDS ORDERED: CEFEPIME HCL 1 GM VIAL IVP SCH (17:00)
[2021-09-14] MEDS ORDERED: ACETAMINOPHEN 500 MG TABLET PO PRN (17:30)
[2021-09-14] MEDS ORDERED: DEXTROSE 50%-WATER 50 ML DISP.SYRIN IV PRN (18:00)
[2021-09-14] MEDS ORDERED: GLUCAGON 1MG KIT 1 MG ML IM PRN (18:00)
[2021-09-14 18:04] LABS: % IRON SATURATION 20.8 % (30-44)
[2021-09-14] MEDS: DOXYCYCLINE 100MG+NS 250ML IV SCH (18:04)
[2021-09-14] MEDS: LINEZOLID 600 MG/ISO-OSM 300 ML IV SCH (18:04)
[2021-09-14] MEDS ORDERED: LABETALOL 20MG VIAL IV PRN (18:30)
[2021-09-14] MEDS ORDERED: SODIUM CHLORIDE 3% FOR INHALATION 4 ML/AMP VIAL.NEB IH ONE (19:11)
[2021-09-14] MEDS: BUDESONIDE 0.5 MG/2 ML INH IH SCH (19:20)
[2021-09-14] MEDS ORDERED: NITROGLYCERIN PATCH 0.2 MG/HR TD SCH (21:00)
[2021-09-14] MEDS: INSULIN HUMULIN R 100 UNIT/ML 3ML SQ SCH (21:00)
[2021-09-14] MEDS: MEROPENEM 1 GM VIAL IVP SCH (22:43)
[2021-09-15] VITALS (30 sets, daily range): BP systolic 125–165; BP diastolic 49–81
[2021-09-15 04:11] LABS: EOSINOPHILS % (AUTO) 2.2 % (0.0-8.0); HEMATOCRIT 37.4 % (42-54); LYMPHOCYTES % (AUTO) 9.3 % (21.0-51.0); MEAN CORPUSCULAR HEMOGLOBIN 29.8 pg (27.0-33.0); MEAN CORPUSCULAR HGB CONC 31.3 g/dL (32.0-36.0); MEAN CORPUSCULAR VOLUME 95.2 fL (79-99); MONOCYTES % (AUTO) 11.9 % (3.0-13.0); NEUTROPHILS % (AUTO) 75.1 % (40.0-77.0); PLATELET COUNT (AUTO) 123 K/uL (130-400); RED BLOOD CELL COUNT(AUTO) 3.93 MIL/uL (4.50-6.20); RED CELL DISTRIBUTION WIDTH 15.8 % (11.0-15.5); WHITE BLOOD COUNT (AUTO) 6.2 K/uL (4.8-10.8)
[2021-09-15 04:39] LABS: ALBUMIN 2.4 g/dL (3.5-5.0); BILIRUBIN,TOTAL 0.9 mg/dL (0.2-1.0); MAGNESIUM 2.3 mg/dL (1.80-2.40); POTASSIUM 5.2 mmol/L (3.5-5.1); TOTAL PROTEIN, SERUM 6.9 g/dL (6.0-8.3)
[2021-09-15] MEDS: DOXYCYCLINE 100MG+NS 250ML IV SCH ×2 (05:13→16:50)
[2021-09-15 05:27] LABS: ABG BASE EXCESS -5.6 mmol/L (-2.0-3.0); ABG HCO3 21.4 mmol/L (21.0-28.0); ABG OXYGEN SATURATION 96.8 % (95.0-99.0); ABG PCO2 48 mmHg (35-48)
[2021-09-15] MEDS: BUDESONIDE 0.5 MG/2 ML INH IH SCH ×2 (06:28→18:40)
[2021-09-15] MEDS: LINEZOLID 600 MG/ISO-OSM 300 ML IV SCH ×2 (06:50→17:53)
[2021-09-15] MEDS: INSULIN HUMULIN R 100 UNIT/ML 3ML SQ SCH ×4 (06:54→22:45)
[2021-09-15] MEDS ORDERED: CARVEDILOL 12.5 MG TABLET PO SCH (07:30)
[2021-09-15] MEDS ORDERED: ASPIRIN 81 MG EC TAB PO SCH (09:00)
[2021-09-15] MEDS ORDERED: CARVEDILOL 12.5 MG TABLET PO ONE (09:00)
[2021-09-15] MEDS ORDERED: HEPARIN 5,000 UNIT VIAL IJ SCH (12:00)
[2021-09-15] MEDS ORDERED: HEPARIN 5,000 UNIT VIAL ONE (12:21)
[2021-09-15] MEDS ORDERED: PHARMACY COMMUNICATION MISC SCH (14:30)
[2021-09-15] MEDS: HONEY 1 APPL/ML TUBE TP SCH (15:20)
[2021-09-15 20:23] LABS: HEPATITIS B SURFACE ANTIGEN SSR (Negative)
[2021-09-15] MEDS: MEROPENEM 1 GM VIAL IVP SCH (21:08)
[2021-09-16 02:57] VITALS: BP 138/71
[2021-09-16 04:07] LABS: HEMATOCRIT 37.4 % (42-54); MEAN CORPUSCULAR HEMOGLOBIN 29.9 pg (27.0-33.0); MEAN CORPUSCULAR VOLUME 96.4 fL (79-99); RED BLOOD CELL COUNT(AUTO) 3.88 MIL/uL (4.50-6.20); RED CELL DISTRIBUTION WIDTH 16.1 % (11.0-15.5); WHITE BLOOD COUNT (AUTO) 7.1 K/uL (4.8-10.8)
[2021-09-16 04:18] LABS: CREATININE 5.2 mg/dL (0.5-1.5); MAGNESIUM 2.3 mg/dL (1.80-2.40); PHOSPHORUS 5.9 mg/dL (2.5-4.9); POTASSIUM 4.4 mmol/L (3.5-5.1)
[2021-09-16] MEDS: DOXYCYCLINE 100MG+NS 250ML IV SCH ×2 (04:26→18:15)
[2021-09-16] MEDS: LINEZOLID 600 MG/ISO-OSM 300 ML IV SCH ×2 (04:26→18:15)
[2021-09-16] MEDS: BUDESONIDE 0.5 MG/2 ML INH IH SCH ×2 (07:00→18:35)
[2021-09-16] MEDS: INSULIN HUMULIN R 100 UNIT/ML 3ML SQ SCH ×4 (07:30→20:23)
[2021-09-16 08:32] VITALS: BP 127/54
[2021-09-16] MEDS: Vitamin B Complex/Vit C/Folic Acid PO SCH (08:44)
[2021-09-16] MEDS: CARVEDILOL 12.5 MG TABLET PO SCH (08:45)
[2021-09-16] MEDS: HONEY 1 APPL/ML TUBE TP SCH (08:57)
[2021-09-16] MEDS ORDERED: PHARMACY COMMUNICATION MISC SCH ×2 (09:00)
[2021-09-16 09:36] LABS: HEMOGLOBIN A1C 7.1 % (4.0-6.0)
[2021-09-16 12:06] VITALS: BP 133/86
[2021-09-16 16:46] VITALS: BP 162/82
[2021-09-16 19:23] VITALS: BP 140/87
[2021-09-16] MEDS: MEROPENEM 1 GM VIAL IVP SCH (20:27)
[2021-09-16 22:58] VITALS: BP 127/71
[2021-09-17] VITALS (21 sets, daily range): BP systolic 114–162; BP diastolic 52–99
[2021-09-17 04:07] LABS: MEAN CORPUSCULAR HEMOGLOBIN 29.8 pg (27.0-33.0); MEAN CORPUSCULAR HGB CONC 30.8 g/dL (32.0-36.0); MEAN CORPUSCULAR VOLUME 96.9 fL (79-99); RED BLOOD CELL COUNT(AUTO) 3.82 MIL/uL (4.50-6.20); RED CELL DISTRIBUTION WIDTH 15.8 % (11.0-15.5); WHITE BLOOD COUNT (AUTO) 7.5 K/uL (4.8-10.8)
[2021-09-17 04:22] LABS: CREATININE 6.6 mg/dL (0.5-1.5); POTASSIUM 4.7 mmol/L (3.5-5.1)
[2021-09-17] MEDS: DOXYCYCLINE 100MG+NS 250ML IV SCH ×2 (04:49→16:19)
[2021-09-17] MEDS: BUDESONIDE 0.5 MG/2 ML INH IH SCH ×2 (06:27→18:39)
[2021-09-17] MEDS: INSULIN HUMULIN R 100 UNIT/ML 3ML SQ SCH ×4 (07:13→21:00)
[2021-09-17] MEDS: CARVEDILOL 12.5 MG TABLET PO SCH (08:12)
[2021-09-17] MEDS: Vitamin B Complex/Vit C/Folic Acid PO SCH (08:12)
[2021-09-17] MEDS: HONEY 1 APPL/ML TUBE TP SCH (08:13)
[2021-09-17] MEDS: CLOPIDOGREL 75MG TAB PO SCH (10:49)
[2021-09-17] MEDS: ASPIRIN 81MG CHEW TAB PO SCH (10:49)
[2021-09-17] MEDS: MEROPENEM 1 GM VIAL IVP SCH (20:02)
[2021-09-18 03:01] VITALS: BP 138/86
[2021-09-18 03:50] LABS: HEMATOCRIT 35.7 % (42-54); LYMPHOCYTES % (AUTO) 7.1 % (21.0-51.0); MEAN CORPUSCULAR HEMOGLOBIN 30.2 pg (27.0-33.0); MEAN CORPUSCULAR HGB CONC 31.7 g/dL (32.0-36.0); MEAN CORPUSCULAR VOLUME 95.5 fL (79-99); MONOCYTES % (AUTO) 13.6 % (3.0-13.0); NEUTROPHILS % (AUTO) 70.9 % (40.0-77.0); PLATELET COUNT (AUTO) 107 K/uL (130-400); RED BLOOD CELL COUNT(AUTO) 3.74 MIL/uL (4.50-6.20); WHITE BLOOD COUNT (AUTO) 7.3 K/uL (4.8-10.8)
[2021-09-18 04:02] LABS: CREATININE 5.2 mg/dL (0.5-1.5); MAGNESIUM 1.9 mg/dL (1.80-2.40); PHOSPHORUS 5.9 mg/dL (2.5-4.9); POTASSIUM 4.6 mmol/L (3.5-5.1)
[2021-09-18] MEDS: DOXYCYCLINE 100MG+NS 250ML IV SCH (04:47)
[2021-09-18] MEDS: BUDESONIDE 0.5 MG/2 ML INH IH SCH (06:45)
[2021-09-18 07:00] VITALS: BP 147/73
[2021-09-18] MEDS: INSULIN HUMULIN R 100 UNIT/ML 3ML SQ SCH ×2 (07:13→11:17)
[2021-09-18] MEDS: CLOPIDOGREL 75MG TAB PO SCH (09:07)
[2021-09-18] MEDS: CARVEDILOL 12.5 MG TABLET PO SCH (09:08)
[2021-09-18] MEDS: Vitamin B Complex/Vit C/Folic Acid PO SCH (09:08)
[2021-09-18] MEDS: HONEY 1 APPL/ML TUBE TP SCH (09:09)
[2021-09-18] MEDS ORDERED: FLUT1AER IH (09:28)
[2021-09-18] MEDS: ASPIRIN 81MG CHEW TAB PO SCH (10:04)
[2021-09-18] MEDS ORDERED: LEVO500T90 PO (10:13)
[2021-09-18 11:00] VITALS: BP 141/78
== END 2021-09-18 14:12 | disposition home or self-care (01) | DRG 193 ==
LOC: EDH 14:20 → EDHIP 16:52 → 2BH 09-15 05:51 → 2DH 09-15 15:54
PROVIDERS: ADMIT Internal Medicine; ATTEND Internal Medicine
PROC: 5A09357 Assistance with Respiratory Ventilation, Less than 24 Consecutive Hours, Continuous Positive Airway Pressure (ICD-10-PCS; principal; 2021-09-14)
PROC: 5A1D70Z Performance of Urinary Filtration, Intermittent, Less than 6 Hours Per Day (ICD-10-PCS; 2021-09-14)
PROC: 5A1D70Z Performance of Urinary Filtration, Intermittent, Less than 6 Hours Per Day (ICD-10-PCS; 2021-09-15)
PROC: 5A1D70Z Performance of Urinary Filtration, Intermittent, Less than 6 Hours Per Day (ICD-10-PCS; 2021-09-17)
DX: J18.9 Pneumonia, unspecified organism (principal); J96.01 Acute respiratory failure with hypoxia; N18.6 End stage renal disease; E43 Unspecified severe protein-calorie malnutrition; J96.02 Acute respiratory failure with hypercapnia; I12.0 Hypertensive chronic kidney disease with stage 5 chronic kidney disease or end stage renal disease; J94.8 Other specified pleural conditions; J98.11 Atelectasis; J84.10 Pulmonary fibrosis, unspecified; Z20.822 Contact with and (suspected) exposure to COVID-19; E78.5 Hyperlipidemia, unspecified; I25.10 Atherosclerotic heart disease of native coronary artery without angina pectoris; E11.22 Type 2 diabetes mellitus with diabetic chronic kidney disease; E11.51 Type 2 diabetes mellitus with diabetic peripheral angiopathy without gangrene; R53.81 Other malaise; I25.5 Ischemic cardiomyopathy; E87.5 Hyperkalemia; I16.0 Hypertensive urgency; Z68.25 Body mass index [BMI] 25.0-25.9, adult; E11.621 Type 2 diabetes mellitus with foot ulcer; E11.42 Type 2 diabetes mellitus with diabetic polyneuropathy; L97.529 Non-pressure chronic ulcer of other part of left foot with unspecified severity; E11.610 Type 2 diabetes mellitus with diabetic neuropathic arthropathy; D64.9 Anemia, unspecified; Z99.2 Dependence on renal dialysis; Z86.74 Personal history of sudden cardiac arrest; Z95.5 Presence of coronary angioplasty implant and graft; Z89.422 Acquired absence of other left toe(s); Z89.511 Acquired absence of right leg below knee; Z91.041 Radiographic dye allergy status; Z88.1 Allergy status to other antibiotic agents; Z82.3 Family history of stroke; Z83.3 Family history of diabetes mellitus; Z82.49 Family history of ischemic heart disease and other diseases of the circulatory system; U09.9 Post COVID-19 condition, unspecified
CPT/HCPCS: 36415; 36600; 71045; 71250; 78582; 80048; 80053; 82435; 82728; 82803; 82947; 82948; 83036; 83540; 83550; 83605; 83735; 83880; 84100; 84132; 84145; 84295; 84484; 85018; 85025; 85027; 85378; 85651; 86140; 86704; 86706; 87040; 87340; 87486; 87581; 87633; 87635; 87798; 87804; 90935; 93005; 93970; 94640; 94660; 94664; 94760; 99291; A9540; A9558; C9803; G0378; J0692; J1644; J1815; J2020; J2185; J3490; J7070

== ENCOUNTER → 2021-11-05 | Outpatient (CLI) | payer BC ==
[~2021-11-05] MED LIST changes: -ACET-2247 PO; -ALBU8.5H8 IH; -CYCL10TA16 PO; +FLUT1AER IH; -FLUT1DIS IH; -HYDR-4060 PO; -INSU100C6 SQ; -TRAM1TAB2 PO
== END | disposition home or self-care (01) ==
LOC: WHH 13:06
PROVIDERS: ATTEND Family Medicine
DX: L84 Corns and callosities (principal); T87.89 Other complications of amputation stump; E11.621 Type 2 diabetes mellitus with foot ulcer; L97.521 Non-pressure chronic ulcer of other part of left foot limited to breakdown of skin; E11.22 Type 2 diabetes mellitus with diabetic chronic kidney disease; I13.2 Hypertensive heart and chronic kidney disease with heart failure and with stage 5 chronic kidney disease, or end stage renal disease; N18.6 End stage renal disease; I50.9 Heart failure, unspecified; E11.42 Type 2 diabetes mellitus with diabetic polyneuropathy; E11.51 Type 2 diabetes mellitus with diabetic peripheral angiopathy without gangrene; E11.610 Type 2 diabetes mellitus with diabetic neuropathic arthropathy; I25.2 Old myocardial infarction; I25.10 Atherosclerotic heart disease of native coronary artery without angina pectoris; Z99.2 Dependence on renal dialysis; Z99.81 Dependence on supplemental oxygen; Z79.899 Other long term (current) drug therapy; Z89.412 Acquired absence of left great toe; Y83.5 Amputation of limb(s) as the cause of abnormal reaction of the patient, or of later complication, without mention of misadventure at the time of the procedure
CPT/HCPCS: 16020; 97597

== ENCOUNTER 2022-02-18 11:01 | Emergency (ER) | payer BC ==
[~2022-02-18] VITALS: Ht 170.2 cm; Wt 69.9 kg
[~2022-02-18 11:01] MED LIST changes: +LEVO-70 PO; -LEVO500T90 PO
[2022-02-18 12:06] LABS: BASOPHILS % (AUTO) 1.2 % (0.0-5.0); EOSINOPHILS % (AUTO) 2.1 % (0.0-8.0); HEMATOCRIT 37.5 % (42-54); LYMPHOCYTES % (AUTO) 8.1 % (21.0-51.0); MEAN CORPUSCULAR HEMOGLOBIN 30.3 pg (27.0-33.0); MEAN CORPUSCULAR HGB CONC 29.9 g/dL (32.0-36.0); MEAN CORPUSCULAR VOLUME 101.4 fL (79-99); MONOCYTES % (AUTO) 15.9 % (3.0-13.0); NEUTROPHILS % (AUTO) 72.5 % (40.0-77.0); PLATELET COUNT (AUTO) 79 K/uL (130-400); RED CELL DISTRIBUTION WIDTH 13.7 % (11.0-15.5); WHITE BLOOD COUNT (AUTO) 4.2 K/uL (4.8-10.8)
[2022-02-18 12:26] LABS: B-TYPE NATRIURETIC PEPTIDE 1060 pg/mL (0-100); CREATININE 4.3 mg/dL (0.5-1.5)
[2022-02-18] MEDS ORDERED: HYDRALAZINE 25MG TABLET PO SCH (12:30)
[2022-02-18 12:31] LABS: ALBUMIN 3.1 g/dL (3.5-5.0); TOTAL PROTEIN, SERUM 7.2 g/dL (6.0-8.3)
[2022-02-18 13:18] VITALS: BP 116/40
[2022-02-18] MEDS ORDERED: HYDR-3421 PO (13:20)
== END 2022-02-18 13:45 | disposition home or self-care (01) ==
LOC: EDH 11:01
DX: I12.0 Hypertensive chronic kidney disease with stage 5 chronic kidney disease or end stage renal disease (principal); E11.22 Type 2 diabetes mellitus with diabetic chronic kidney disease; N18.6 End stage renal disease; R53.1 Weakness; Z20.822 Contact with and (suspected) exposure to COVID-19; F41.9 Anxiety disorder, unspecified; G47.00 Insomnia, unspecified; Z79.51 Long term (current) use of inhaled steroids; Z79.82 Long term (current) use of aspirin; Z88.1 Allergy status to other antibiotic agents; Z88.8 Allergy status to other drugs, medicaments and biological substances; Z95.5 Presence of coronary angioplasty implant and graft
CPT/HCPCS: 99284; 71045; 87635; 84484; 80053; 83880; 85025; 87804 ×2; 83605; 36415; 93005; C9803